=== PATIENT | male | born 1970 | race Hispanic/Latino ===

== ENCOUNTER 2017-04-29 17:37 | Inpatient (IN) | payer OTHER ==
[2017-04-29] MEDS ORDERED: Morphine 4 mg/ml ISec IVP STA ×2 (18:28→22:05)
[2017-04-29] MEDS ORDERED: Sodium Chloride 0.9% 1,000 ML IV STA (18:28)
--- NOTE | 2017-04-29 19:17 | ED PDOC ---
Arrival/HPI - General Chief Complaint: Abdominal Pain Time Seen by Provider: 04/29/17 17:53 Historian: Patient - History of Present Illness Narrative History of Present Illness (Text): The patient is a 47yo male, presents to the emergency department for evaluation of periumbilical abdominal pain, present since 2AM on 04/28, associated with mucus-like bowel movements. Patient states the pain intially started while he was at work and describes it at mild and pressure like. Patient states after he has a bowel movement, he has some relief to his symptoms; also reports similar relief with urination. Patient states the pain is currently intermittent and associated with decreased appetite. He denies any fever, nausea, vomiting, dysuria or hematuria, endoscopy or colonoscopy. He offers no additional medical complaints. Past Medical History - Provider Review Nursing Documentation Reviewed: Yes - Travel History Have you recently traveled outside [place] w/in the past 3 mons?: No - Infectious Disease Hx of Infectious Diseases: None - Psychiatric Hx Substance Use: No - Anesthesia Hx Anesthesia: No Family/Social History - Physician Review Nursing Documentation Reviewed: Yes Family/Social History: CVA/TIA, Diabetes, Hypertension, CAD/OH Smoking Status: Never Smoked Hx Alcohol Use: No Hx Substance Use: No Allergies/Home Meds Allergies/Adverse Reactions: Allergies No Known Allergies Allergy (Verified 04/29/17 17:45) Home Medications: Home Meds Medication Instructions Recorded Confirmed No Known Home Med 04/29/17 04/29/17 Review of Systems - Physician Review All systems were reviewed & negative as marked: Yes - Review of Systems Constitutional: Other (decreased appetite). absent: Fevers Gastrointestinal: Abdominal Pain (periumbilical). absent: Nausea, Vomiting, Hematochezia Genitourinary Male: absent: Dysuria, Frequency, Hematuria Physical Exam Vital Signs Reviewed: Yes Vital Signs Temp Pulse Resp BP Pulse Ox 04/30/17 00:52 112 H 35 H 04/30/17 00:05 101.5 F H 116 H 24 151/79 H 95 04/29/17 22:37 109 H 16 155/81 H 100 04/29/17 20:34 98.4 F 04/29/17 20:33 113 H 18 154/110 H 96 04/29/17 17:47 97.6 F 110 H 18 163/114 H 100 Temperature: Afebrile Blood Pressure: Normal Pulse: Regular Respiratory Rate: Normal Appearance: Positive for: Non-Toxic, Comfortable, Other (obese) Pain Distress: Mild Mental Status: Positive for: Alert and Oriented X 3 - Systems Exam Head: Present: Atraumatic, Normocephalic Pupils: Present: PERRL Extroacular Muscles: Present: EOMI Mouth: Present: Moist Mucous Membranes Respiratory/Chest: Present: Clear to Auscultation Cardiovascular: Present: Regular Rate and Rhythm Abdomen: Present: Tenderness (diffuse abdominal tenderness). No: Distention Upper Extremity: Present: Normal Inspection Lower Extremity: Present: Normal Inspection Neurological: Present: GCS=15, CN II-XII Intact, Speech Normal Lymphatic: No: Cervical Adenopathy, Axillary Adenopathy, Inguinal Adenopathy, Other Psychiatric: Present: Alert, Oriented x 3 Medical Decision Making ED Course and Treatment: Impression: 47yo male comes in for evaluation of periumbilical abdominal pain Plan: -- Labs -- CT AP w/ PO & IV contrast -- Zofran -- Morphine -- Fluids -- Reassess and disposition Progress Notes: On reevaluation, patient continues to pain to the periumbilical area, reports no nausea. On exam, abdomen still soft, slightly distended and rigid with diffuse abdominal tenderness with no guarding, no rebound. Given Morphine 4 mg IV and Zofran 4 mg IV. Labs reviewed : WBC 13, Glucose 165, UA +protein/glucose/ ketones. Patient still pending CT. Tolerating po contrast well. CT results reviewed which show +perforation from acute diverticulitis. residential mortgage underwriter paged STAT, spoke to Dr. Cooley, who came and evaluated the patient. As per Dr. Cooley, Dr. Virgen will take the patient to the OR first thing in the AM, but to admit in the ICU. Call placed to Dr. Gonzales and case discussed, he agrees that the patient should be in ICU. Patient's VSS at this time, he is comfortable and is not requesting for more pain medications. IV cipro and flagyl ordered. Further plan for inpatient admission to ICU discussed with the patient with OR in the AM, he agrees with current plan of care. Patient kept NPO. - Lab Interpretations Lab Results: 04/29/17 18:58 04/29/17 18:58 Lab Results 04/29/17 20:30: Urine Color Yellow, Urine Appearance Clear, Urine pH 6.0, Ur Specific [place] 1.020, Urine Protein 30 H, Urine Glucose (UA) 250 H, Urine Ketones 15 H, Urine Blood Trace-lysed H, Urine Nitrate Negative, Urine Bilirubin Negative, Urine Urobilinogen 0.2, Ur Leukocyte Esterase Negative, Urine RBC 2 - 5, Urine WBC 1 - 3, Ur Epithelial Cells 3 - 4, Urine Bacteria Many , Urine Other Mucus 04/29/17 18:58: Sodium 140, Potassium 4.0, Chloride 101, Carbon Dioxide 29, Anion Gap 14, BUN 20, Creatinine 0.9, Est GFR ( Amer) > 60, Est GFR (Non- Af Amer) > 60, Random Glucose 165 H, Calcium 9.0, Total Bilirubin 1.0, AST 30, ALT 48, Alkaline Phosphatase 80, Total Protein 8.3, Albumin 4.3, Globulin 4.0, Albumin/Globulin Ratio 1.1, Lipase 43 04/29/17 18:58: PT 11.1, INR 1.03, APTT 26.6 04/29/17 18:58: WBC 13.6 H, RBC 5.10, Hgb 15.8, Hct 43.9, MCV 86.1, MCH 31.0, MCHC 36.0, RDW 12.9, Plt Count 200, MPV 9.8, Gran % 86.0 H, Lymph % (Auto) 8.2 L , [place] % (Auto) 5.5, Eos % (Auto) 0.2 L, Baso % (Auto) 0.1, Gran # 11.66 H, Lymph # 1.1 L, [place] # 0.7 H, Eos # 0.0, Baso # 0.02 - RAD Interpretation Radiology Orders: 04/29/17 18:28 ABD PELVIS PO & IV CONTRAST [CT] Stat - Medication Orders Current Medication Orders: Heparin Sodium (Porcine) (Heparin) 5,000 units SC Q12 FRANSICO PRN Reason: Protocol Hydromorphone HCl (Dilaudid) 1 mg IVP Q4H PRN PRN Reason: Pain, severe (8-10) Metronidazole (Flagyl) 500 mg in 100 mls @ 100 mls/hr IVPB Q8 FRANSICO PRN Reason: Protocol Last Admin: 04/30/17 05:11 Dose: 100 mls/hr eMAR Start Stop Document 04/30/17 05:11 AMA (Rec: 04/30/17 05:12 AMA [id number]) Intravenous Solution Start Date 04/30/17 Start Time 05:30 End Date 04/30/17 End time 06:30 Total Infusion Time 60 Lactated Ringer's (Lactated Ringer's) 1,000 mls @ 150 mls/hr IV .Q6H40M FRANSICO Last Admin: 04/30/17 12:33 Dose: 150 mls/hr eMAR Start Stop Document 04/30/17 12:33 AE (Rec: 04/30/17 12:34 AE [facility] Intravenous Solution Start Date 04/30/17 Start Time 12:33 End Date 04/30/17 End time 14:23 Total Infusion Time 110 Ciprofloxacin (Cipro 400mg/200ml Dsw) 400 mg in 200 mls @ 200 mls/hr IVPB 0800, 2000 FRANSICO Acetaminophen (Ofirmev) 1,000 mg in 100 mls @ 400 mls/hr IVPB Q6H PRN PRN Reason: Pain, moderate (4-7) Stop: 05/02/17 13:21 Last Admin: 04/30/17 13:45 Dose: 400 mls/hr eMAR Start Stop Document 04/30/17 13:45 AE (Rec: 04/30/17 13:46 AE [facility] Intravenous Solution Start Date 04/30/17 Start Time 13:46 End Date 04/30/17 End time 14:04 Total Infusion Time 18 MAR Pain Assessment Document 04/30/17 13:45 AE (Rec: 04/30/17 13:46 AE [facility] Pain Reassessment Is this a pain reassessment? Yes Sleep Is patient sleeping during reassessment? No Presence of Pain Presence of Pain Yes Pain Scale Used Pain Scale Used Numeric Location Pain Location Body Site Abdomen Description Description Intermittent Intensity of Pain at present 5 Pain Behavior Guarding Aggravating Factors None Alleviating Factors/Management Medication Techniques Alleviating Factors Medication Ondansetron HCl (Zofran Inj) 4 mg IVP Q6H PRN PRN Reason: Nausea/Vomiting Ondansetron HCl (Zofran Inj) 4 mg IVP ONCE PRN PRN Reason: Nausea/Vomiting Pantoprazole Sodium (Protonix Inj) 40 mg IVP DAILY [facility] Last Admin: 04/30/17 12:34 Dose: 40 mg IVP Administration Document 04/30/17 12:34 AE (Rec: 04/30/17 12:34 AE [facility] Charges for Administration # of IVP Administrations 1 Discontinued Medications Bacitracin (Bacitracin) Confirm Administered Dose 50,000 unit .ROUTE .STK-MED ONE Stop: 04/30/17 07:39 Clindamycin Phosphate (Cleocin) Confirm Administered Dose 1,200 mg .ROUTE .STK- MED ONE Stop: 04/30/17 07:39 Ephedrine (Ephedrine) Confirm Administered Dose 50 mg .ROUTE .STK-MED ONE Stop: 04/30/17 08:46 Fentanyl (Fentanyl) Confirm Administered Dose 100 mcg .ROUTE .STK-MED ONE Stop: 04/30/17 07:58 Fentanyl (Fentanyl) Confirm Administered Dose 100 mcg .ROUTE .STK-MED ONE Stop: 04/30/17 10:25 Glycopyrrolate (Robinul) Confirm Administered Dose 0.2 mg .ROUTE .STK-MED ONE Stop: 04/30/17 10:20 Glycopyrrolate (Robinul) Confirm Administered Dose 0.4 mg .ROUTE .STK-MED ONE Stop: 04/30/17 10:20 Hydromorphone HCl (Dilaudid) 0.5 mg IVP Q4H PRN PRN Reason: Pain, moderate (4-7) Last Admin: 04/30/17 05:10 Dose: 0.5 mg MAR Pain Assessment Document 04/30/17 05:10 AMA (Rec: 04/30/17 05:[address]) Pain Reassessment Is this a pain reassessment? No Sleep Is patient sleeping during reassessment? No Presence of Pain Presence of Pain Yes Pain Scale Used Pain Scale Used Numeric Location Pain Location Body [employer] Coordinator Description Description Constant IVP Administration Document 04/30/17 05:10 AMA (Rec: 04/30/17 05:[address]) Charges for Administration # of IVP Administrations 1 Hydromorphone HCl (Dilaudid) 0.5 mg IVP Q15M PRN PRN Reason: Pain, moderate (4-7) Stop: 04/30/17 09:48 Hydromorphone HCl (Dilaudid) 1 mg IVP Q4H PRN PRN Reason: Pain, moderate (4-7) Last Admin: 04/30/17 12:05 Dose: 1 mg [facility] Pain Assessment Document 04/30/17 12:05 BREONNAShayy (Rec: 04/30/17 12:25 [id number] Pain Reassessment Is this a pain reassessment? Yes Sleep Is patient sleeping during reassessment? No Presence of Pain Presence of Pain Yes Pain Scale Used Pain Scale Used Numeric Location Pain Location Body Site Abdomen Description Description Acute Intensity of Pain at present 8 Acceptable Level of Pain 2 Site Observation S/P MONTES'S PROCEDURE Pain Behavior Moaning Facial Grimacing Aggravating Factors None Alleviating Factors/Management Medication Techniques Relaxation Techniques Alleviating Factors Distraction Effects of Pain DECREASE ADL Effectiveness of Techniques comfort Pain not relieved and LIP/MD was Yes notified IVP Administration Document 04/30/17 12:05 ARELY (Rec: 04/30/17 12:25 [id number] Charges for Administration # of IVP Administrations 1 Re-Assess: [facility] Pain Assessment Document 04/30/17 13:05 AE (Rec: 04/30/17 13:22 AE [id number]) Pain Reassessment Is this a pain reassessment? Yes Sleep Is patient sleeping during reassessment? No Presence of Pain Presence of Pain Yes Pain Scale Used Pain Scale Used Numeric Location Pain Location Body Site Abdomen Description Description Intermittent Alleviating Factors/Management Medication Techniques Alleviating Factors Medication Hydromorphone HCl (Dilaudid) Confirm Administered Dose 0.5 mg .ROUTE .STK-MED ONE Stop: 04/30/17 11:51 Hydromorphone HCl (Dilaudid) Confirm Administered Dose 0.5 mg .ROUTE .STK-MED ONE Stop: 04/30/17 12:05 Hydromorphone HCl (Dilaudid) 1 mg IVP .STK-MED ONE Stop: 04/30/17 12:06 Last Admin: 04/30/17 12:05 Dose: 1 mg Sodium Chloride (Sodium Chloride 0.9%) 1,000 mls @ 1,000 mls/hr IV .Q1H STA Stop: 04/29/17 19:27 Last Admin: 04/29/17 19:00 Dose: 1,000 mls/hr eMAR Start Stop Document 04/29/17 19:00 HI (Rec: 04/29/17 19:00 HI [id number]) Intravenous Solution Start Date 04/29/17 Start Time 19:00 Ampicillin Sodium/Sulbactam (Sodium 3 gm/ Sodium Chloride) 100 mls @ 100 mls/ hr IVPB STAT STA PRN Reason: Protocol Stop: 04/29/17 23:59 Last Admin: 04/29/17 23:44 Dose: 100 mls/hr eMAR Start Stop Document 04/29/17 23:44 ELLA (Rec: 04/29/17 23:44 ELLA [id number]) Intravenous Solution Start Date 04/29/17 Start Time 23:10 End Date 04/29/17 End time 23:44 Total Infusion Time 34 Ciprofloxacin (Cipro 400mg/200ml Dsw) 400 mg in 200 mls @ 133.3 mls/hr IVPB Q12 FRANSICO PRN Reason: Protocol Stop: 04/30/17 01:01 Last Admin: 04/30/17 01:18 Dose: 133.3 mls/hr eMAR Start Stop Document 04/30/17 01:18 AMA (Rec: 04/30/17 01:18 AMA [id number]) Intravenous Solution Start Date 04/30/17 Start Time 01:18 End Date 04/30/17 End time 02:55 Total Infusion Time 97 Ciprofloxacin (Cipro 400mg/200ml Dsw) 400 mg in 200 mls @ 133.3 mls/hr IVPB Q12 FRANSICO PRN Reason: Protocol Stop: 04/30/17 11:31 Last Admin: 04/30/17 12:33 Dose: 133.3 mls/hr eMAR Start Stop Document 04/30/17 12:33 AE (Rec: 04/30/17 12:33 AE [facility] Intravenous Solution Start Date 04/30/17 Start Time 12:33 End Date 04/30/17 End time 14:00 Total Infusion Time 87 Lactated Ringer's (Lactated Ringer's) 1,000 mls @ 75 mls/hr IV .[id number] FRANSICO Stop: 04/30/17 10:01 Last Admin: 04/30/17 13:47 Dose: Not Given Non-Admin Reason: Patient in OR/Vascular Ciprofloxacin (Cipro 400mg/200ml Dsw) Confirm Administered Dose 400 mg in 200 mls @ ud IVPB .STK-MED ONE Stop: 04/30/17 08:04 Last Admin: 04/30/17 08:10 Dose: 200 mls Iohexol (Omnipaque 240 (50 Ml)) Confirm Administered Dose 50 ml .ROUTE .STK-MED ONE Stop: 04/29/17 19:27 Iohexol (Omnipaque 350 100 Ml) Confirm Administered Dose 350 mg .ROUTE .STK-MED ONE Stop: 04/29/17 21:38 Lidocaine (Lidocaine) Confirm Administered Dose 100 mg .ROUTE .STK-MED ONE Stop: 04/30/17 07:58 Midazolam HCl (Versed Inj) Confirm Administered Dose 2 mg .ROUTE .STK-MED ONE Stop: 04/30/17 07:58 Morphine Sulfate (Morphine) 4 mg IVP STAT STA Stop: 04/29/17 18:29 Last Admin: 04/29/17 19:00 Dose: 4 mg MAR Pain Assessment Document 04/29/17 19:00 HI (Rec: 04/29/17 19:01 [id number]) Pain Reassessment Is this a pain reassessment? No Sleep Is patient sleeping during reassessment? No Presence of Pain Presence of Pain Yes Location Upper or Lower Lower Pain Location Body Site Abdomen IVP Administration Document 04/29/17 19:00 HI (Rec: 04/29/17 19:01 [id number]) Charges for Administration # of IVP Administrations 1 Re-Assess: MAR Pain Assessment Document 04/29/17 20:00 HI (Rec: 04/29/17 22:24 [id number]) Pain Reassessment Is this a pain reassessment? Yes Sleep Is patient sleeping during reassessment? No Presence of Pain Presence of Pain Yes Pain Scale Used Pain Scale Used Numeric Description Intensity of Pain at present 3 Morphine Sulfate (Morphine) 4 mg IVP STAT STA Stop: 04/29/17 22:06 Last Admin: 04/29/17 22:36 Dose: 4 mg MAR Pain Assessment Document 04/29/17 22:36 HI (Rec: 04/29/17 22:36 [id number]) Pain Reassessment Is this a pain reassessment? Yes Sleep Is patient sleeping during reassessment? No Presence of Pain Presence of Pain Yes Pain Scale Used Pain Scale Used Numeric Location Upper or Lower Lower Pain Location Body Site Abdomen Description Description Sharp Intensity of Pain at present 6 Alleviating Factors/Management Medication Techniques Alleviating Factors Medication IVP Administration Document 04/29/17 22:36 HI (Rec: 04/29/17 22:36 HI [id number]) Charges for Administration # of IVP Administrations 1 Neostigmine Methylsulfate (Neostigmine Methylsulfate) Confirm Administered Dose 6 mg IV .STK-MED ONE Stop: 04/30/17 10:18 Ondansetron HCl (Zofran Inj) 4 mg IVP STAT STA Stop: 04/29/17 18:29 Last Admin: 04/29/17 19:00 Dose: 4 mg IVP Administration Document 04/29/17 19:00 HI (Rec: 04/29/17 19:00 HI [id number]) Charges for Administration # of IVP Administrations 1 Ondansetron HCl (Zofran Inj) 4 mg IVP STAT STA Stop: 04/29/17 22:06 Last Admin: 04/29/17 22:36 Dose: 4 mg IVP Administration Document 04/29/17 22:36 HI (Rec: 04/29/17 22:36 [id number]) Charges for Administration # of IVP Administrations 1 Ondansetron HCl (Zofran Inj) Confirm Administered Dose 4 mg .ROUTE .STK-MED ONE Stop: 04/30/17 10:18 Oxychlorosene Sodium (Clorpactin Wcs-90) Confirm Administered Dose 14 gm TOP .STK-MED ONE Stop: 04/30/17 07:40 Oxychlorosene Sodium (Clorpactin Wcs-90) 2 gm TOP .STK-MED ONE Stop: 04/30/17 08:31 Last Admin: 04/30/17 08:30 Dose: 2 gm Phenylephrine HCl (Phenylephrine Inj) Confirm Administered Dose 10 mg .ROUTE .STK-MED ONE Stop: 04/30/17 08:47 Propofol (Diprivan) Confirm Administered Dose 400 mg .ROUTE .STK-MED ONE Stop: 04/30/17 07:57 Rocuronium [place] (Zemuron) Confirm Administered Dose 50 mg .ROUTE .STK-MED ONE Stop: 09/25/17 07:58 Soap/Cleanser (Mastisol Adhesive) Confirm Administered Dose 0.666 ml TOP .STK- MED ONE Stop: 04/30/17 10:30 - PA / FIELD GAUGER / Resident Statement MD/DO has reviewed & agrees with the documentation as recorded. - Scribe Statement The provider has reviewed the documentation as recorded by the Scribe Shobha Rob Provider Scribe Attestation: All medical record entries made by the Scribe were at my direction and personally dictated by me. I have reviewed the chart and agree that the record accurately reflects my personal performance of the history, physical exam, medical decision making, and the department course for this patient. I have also personally directed, reviewed, and agree with the discharge instructions and disposition. Disposition/Present on Arrival - Present on Arrival Any Indicators Present on Arrival: No History of DVT/PE: No History of Uncontrolled Diabetes: No Urinary Catheter: No History of Decub. Ulcer: No History Surgical Site Infection Following: None - Disposition Have Diagnosis and Disposition been Completed?: Yes Diagnosis: Diverticulitis of colon with perforation Disposition: HOSPITALIZED Disposition Time: 23:15 Patient Plan: ICU Patient Problems: Current Active Problems Problem Status Onset Diverticulitis of colon with perforation Acute Condition: STABLE
[2017-04-29 19:26] LABS: ALB/GLOB RATIO 1.1 (1.1-1.8); ALKALINE PHOSPHATASE 80 U/L (38-126); ALT/SGPT 48 U/L (7-56); AST/SGOT 30 U/L (17-59); BLOOD UREA NITROGEN 20 mg/dL (7-21); CARBON DIOXIDE 29 mmol/L (21-33); CHLORIDE 101 mmol/L (98-107); GFR AFRICAN-AMERICAN > 60; GLUCOSE,RANDOM 165 mg/dL (70-110); LIPASE 43 U/L (23-300); SODIUM 140 mmol/L (132-148); TOTAL PROTEIN 8.3 g/dL (5.8-8.3)
[2017-04-29] MEDS ORDERED: Iohexol 240 (50 ml) ONE (19:26)
[2017-04-29 19:28] LABS: BASO # 0.02 K/mm3 (0.0-2.0); BASO % 0.1 % (0.0-3.0); EOS % 0.2 % (1.5-5.0); GRAN # 11.66 (1.4-6.5); HEMATOCRIT 43.9 % (42.0-52.0); LYMPH # 1.1 (1.2-3.4); LYMPH % 8.2 % (22.0-35.0); MEAN CELL VOLUME 86.1 fl (80.0-105.0); MEAN PLATELET VOLUME 9.8 fl (7.0-11.0); MONO # 0.7 (0.1-0.6); MONO % 5.5 % (1.0-6.0); RED CELL DISTRIBUTION WIDTH 12.9 % (11.5-14.5); WHITE BLOOD COUNT 13.6 10^3/ul (4.5-11.0)
[2017-04-29 19:39] LABS: INR 1.03 (0.93-1.08); PARTIAL THROMBOPLASTIN TIME 26.6 Seconds (23.7-30.8)
[2017-04-29 21:03] LABS: URINE BILIRUBIN NEGATIVE (NEGATIVE); URINE BLOOD TRACE-LYSED (NEGATIVE); URINE GLUCOSE (UA) 250 mg/dL (NEGATIVE); URINE KETONE 15 mg/dL (NEGATIVE); URINE LEUKOCYTE ESTERASE NEGATIVE Leu/uL (NEGATIVE); URINE PROTEIN 30 mg/dL (<30 mg/dL); URINE UROBILINOGEN 0.2 E.U./dL (<1 E.U./dL)
[2017-04-29 21:10] LABS: URINE APPEARANCE CLEAR (CLEAR); URINE COLOR YELLOW (YELLOW)
[2017-04-29 21:27] LABS: URINE BACTERIA MANY (NEG)
[2017-04-29] MEDS ORDERED: Iohexol 350 MG/100 ML VIAL ONE (21:37)
--- NOTE | 2017-04-29 22:48 | CT ---
EXAM: CT Abdomen and Pelvis With Intravenous Contrast CLINICAL HISTORY: 47 years old, male; Pain; Abdominal pain; Periumbilical; Patient HX: Abd pain, mucus tool TECHNIQUE: Axial computed tomography images of the abdomen and pelvis with intravenous contrast. All CT scans at this facility use one or more dose reduction techniques, viz.: automated exposure control; ma/kV adjustment per patient size (including targeted exams where dose is matched to indication; i.e. head); or iterative reconstruction technique. Coronal and sagittal reformatted images were created and reviewed. CONTRAST: 97 mL of OMNIPAQUE 350 administered intravenously. COMPARISON: No relevant prior studies available. FINDINGS: Atelectasis/scarring at the lung bases. 1.5 mm calcified nodular pleural based focus in the right middle lobe. Fatty infiltration of the liver. The spleen, pancreas and adrenal glands demonstrate no acute abnormalities. The kidneys are symmetric with no evidence of hydronephrosis. The aorta is unremarkable. Colonic diverticula. Segment of sigmoid colon demonstrates significant bowel wall thickening. Adjacent surrounding the fluid/inflammatory stranding in the mesentery. Some adjacent small bowel loops demonstrate bowel wall thickening, likely secondary inflammation. Free air is noted throughout the peritoneum. Degenerative changes. IMPRESSION: Appearance most consistent with perforated acute diverticulitis. Please see additional details/findings as above.
[2017-04-29] MEDS: Ampicillin/Sulbactam 3 GM in Sodium Chloride 0.9% 100 ML IVPB STA ×2 (23:10→23:44)
--- NOTE | 2017-04-29 23:20 | CP.PCM.HP ---
History of Present Illness - History of Present Illness History of Present Illness: General Surgery - Dr. Virgen cc: abdominal pain 47 M with no PMH presents to [facility] with complain of abdominal pain. Patient states that pain began Sunday while he was at work. He felt like he had to have a BM and when he went he noticed the pain worsened. Patient decided to wait it out to see if pain resolved but instead had gotten progressively worse. Patient never had this pain before. He states this is the worst pain he's experienced in his life. He describes the pain as constant and stabbing located in the periumbilical region and LLQ. He had multiple bouts of diarrhea and mucous consistency BMs. Palpation, BMs and certain movements exacerbates the pain while nothing alleviates it. Admits to anorexia, subjective fever/chills, nausea. Denies cp, palpitations, vomiting, hematochezia, hematemesis, incontinence. PMH: Denies Meds: Denies Allergy: NKDA PSH: Denies Hosp: Denies FH: noncontributory Social: Denies tobacco, EtOH, and illicit drug use Present on Admission - Present on Admission Any Indicators Present on Admission: No History of DVT/PE: No History of Uncontrolled Diabetes: No Urinary Catheter: No Decubitus Ulcer Present: No Review of Systems - Review of Systems All systems: reviewed and no additional remarkable complaints except (anorexia, subjective fever/chills, nausea. diarrhea, abdominal pain) Past Patient History - Infectious Disease Hx of Infectious Diseases: None - Past Social History Smoking Status: Never Smoked - PSYCHIATRIC Hx Substance Use: No - SURGICAL HISTORY Hx Surgeries: No - ANESTHESIA Hx Anesthesia: No Meds Allergies/Adverse Reactions: Allergies Allergy/AdvReac Type Severity Reaction Status Date / Time No Known Allergies Allergy Verified 04/29/17 17:45 Physical Exam - Constitutional Appears: No Acute Distress - Head Exam Head Exam: ATRAUMATIC, NORMOCEPHALIC - Eye Exam Eye Exam: Normal appearance - ENT Exam ENT Exam: Mucous Membranes Moist - Neck Exam Neck exam: Positive for: Full Rom - Respiratory Exam Respiratory Exam: NORMAL BREATHING PATTERN - Cardiovascular Exam Cardiovascular Exam: Tachycardia - GI/Abdominal Exam GI & Abdominal Exam: Distended, Firm, Guarding, Tenderness (periumbilical, LLQ) . absent: Rebound - Extremities Exam Extremities exam: Positive for: normal capillary refill, pedal pulses present. Negative for: calf tenderness - Back Exam Back exam: absent: CVA tenderness (L), CVA tenderness (R) - Neurological Exam Neurological exam: Alert, CN II-XII Intact, Oriented x3 - Psychiatric Exam Psychiatric exam: Normal Affect, Normal Mood - Skin Skin Exam: Dry, Intact, Normal Color, Warm Results - Vital Signs Recent Vital Signs: Last Vital Signs Temp 98.4 F 04/29/17 20:34 Pulse 109 H 04/29/17 22:37 Resp 16 04/29/17 22:37 BP 155/81 H 04/29/17 22:37 Pulse Ox 100 04/29/17 22:37 - Labs Result Diagrams: 04/29/17 18:58 04/29/17 18:58 Labs: Laboratory Results - last 24 hr 04/29/17 04/29/17 04/29/17 18:58 18:58 18:58 WBC 13.6 H RBC 5.10 Hgb 15.8 Hct 43.9 MCV 86.1 MCH 31.0 MCHC 36.0 RDW 12.9 Plt Count 200 MPV 9.8 Gran % 86.0 H Lymph % (Auto) 8.2 L [place] % (Auto) 5.5 Eos % (Auto) 0.2 L Baso % (Auto) 0.1 Gran # 11.66 H Lymph # 1.1 L [place] # 0.7 H Eos # 0.0 Baso # 0.02 PT 11.1 INR 1.03 APTT 26.6 Sodium 140 Potassium 4.0 Chloride 101 Carbon Dioxide 29 Anion Gap 14 BUN 20 Creatinine 0.9 Est GFR ( Amer) > 60 Est GFR (Non-Af Amer) > 60 Random Glucose 165 H Calcium 9.0 Total Bilirubin 1.0 AST 30 ALT 48 Alkaline Phosphatase 80 Total Protein 8.3 Albumin 4.3 Globulin 4.0 Albumin/Globulin Ratio 1.1 Lipase 43 Urine Color Urine Appearance Urine pH Ur Specific [place] Urine Protein Urine Glucose (UA) Urine Ketones Urine Blood Urine Nitrate Urine Bilirubin Urine Urobilinogen Ur Leukocyte Esterase Urine RBC Urine WBC Ur Epithelial Cells Urine Bacteria Urine Other 04/29/17 20:30 WBC RBC Hgb Hct MCV MCH MCHC RDW Plt Count MPV Gran % Lymph % (Auto) [place] % (Auto) Eos % (Auto) Baso % (Auto) Gran # Lymph # [place] # Eos # Baso # PT INR APTT Sodium Potassium Chloride Carbon Dioxide Anion Gap BUN Creatinine Est GFR ( Amer) Est GFR (Non-Af Amer) Random Glucose Calcium Total Bilirubin AST ALT Alkaline Phosphatase Total Protein Albumin Globulin Albumin/Globulin Ratio Lipase Urine Color Yellow Urine Appearance Clear Urine pH 6.0 Ur Specific [place] 1.020 Urine Protein 30 H Urine Glucose (UA) 250 H Urine Ketones 15 H Urine Blood Trace-lysed H Urine Nitrate Negative Urine Bilirubin Negative Urine Urobilinogen 0.2 Ur Leukocyte Esterase Negative Urine RBC 2 - 5 Urine WBC 1 - 3 Ur Epithelial Cells 3 - 4 Urine Bacteria Many Urine Other Mucus Assessment & Plan - Assessment and Plan (Free Text) Plan: 47 M with acute perforated diverticulitis with free air in abdomen -CT revealed free air and perforated diverticulitis in sigmoid colon -Plan for OR at 730 AM -NPO -Type and Cross -IV fluids -IV abx -Pain control -DW Dr. Param Cooley PGY1
[2017-04-29] MEDS ORDERED: HYDROmorphone 0.5 mg/0.5 ml ISec IVP PRN (23:21)
[2017-04-29] MEDS ORDERED: Ciprofloxacin 400mg/200ml D5W 400 MG/200 ML BAG IVPB SCH (23:30)
[2017-04-29] MEDS: Lactated Ringer's 1,000 ML IV SCH (23:43)
[2017-04-29] MEDS: metroNIDAZOLE IV 500 mg/100 ml 500 MG/100 ML BAG IVPB SCH (23:55)
[2017-04-30 00:06] LABS: INR 1.06 (0.93-1.08); PARTIAL THROMBOPLASTIN TIME 27.8 Seconds (23.7-30.8)
[2017-04-30 01:23] VITALS: BMI 40.1
[2017-04-30] MEDS: Lactated Ringer's 1,000 ML IV SCH ×3 (01:44→12:33)
--- NOTE | 2017-04-30 01:48 | CP.PCM.CON ---
<Willie Ogden - Last Filed: 04/30/17 03:27> History of Present Illness - History of Present Illness History of Present Illness: HPI: Patient is a 47 year old male with no previous medical history who presents to the [facility] ED 04/29/17 with complaints of abdominal pain which started around 4 a.m. as per patient. He states the pain was diffusely throughout the abdomen but more so in the lower left quadrant. He states that when the pain started he would have to both urinate and make a bowel movement which relieved the pain; admitted to [facility] from time to time. Patient denies any associated nausea, vomiting, diarrhea. Described the bowel movements as soft stating they were not solid nor loose. He also denies the presence of blood or discoloration to stool. Patient states the pain associated with bowel movements continued every hour until 5 p.m. on 04/29/17, with the last episode of bowel movement consisting mainly of stringy mucous and association of severe 10/10 pain. He states that after this bowel movement he could hardly move without feeling pain; which prompted him to go to the ED. He admits to lack of appetite, however patient did continue to eat foods which consisted of bread, chicken, and broccoli. Admits to feeling febrile, denies chills, nausea, vomiting, dysuria, dizziness, headache, weakness, chest pain, shortness of breath. Neurological Patient is alert awake and oriented x 3 with a GSC score of 15. Cranial nerves II-XII intact. Currently administered Dilaudid 0.5 mg q4 PRN for pain control. Cardiolovascular S1 and S2 present, RRR, no murmurs or gallops appreciated. HR last measured at 120. BP last measured at 160/90. Normal color skin, warm. Temperature last measured at 100.3 F. Respiratory CTA B/L, no crackles, wheezing, or rhonchi appreciated. Pulse Ox last measured at 95% on room air. Respiratory rate last measured at 21. Renal Patient currently on LR 1000 ml IV 150 mls/hr. Sodium 140, Potassium 4.0, Chloride 101, Bicarb 29, BUN/Cr 20/0.9. Skin with normal turgor. Gastrointestinal Abdomen is large round and distended with absent bowel sounds, tender upon palpation B/L LQ. Patient admits to over 20 episodes of bowel movements since start of abdominal pain. Albumin 4.3, AST 30, ALT 48, Lipase 43. Abdominal/ Pelvic CT reveals findings consistent with perforated acute diverticulitis. Endocrine Glucose 165, Calcium 9.0, Sodium 140, Potassium 4.0 Hematology WBC 13.6, Platelets 200, H&H 15.8 & 43.9, PT 11.4, INR1.06, PTT 27.8 Review of Systems - Constitutional Constitutional: Fever. absent: Chills, Increased Appetite - EENT Eyes: absent: Blurred Vision, Change in Vision Ears: absent: Decreased Hearing, Ear Discharge, Dizziness - Cardiovascular Cardiovascular: absent: Chest Pain, Dyspnea - Respiratory Respiratory: absent: Cough, Dyspnea, Wheezing - Gastrointestinal Gastrointestinal: Abdominal Pain, Change in Bowel Habits (several episodes of soft stools and tenesmus). absent: Constipation, Diarrhea, Melena, Nausea, Vomiting - Genitourinary Genitourinary: absent: Change in Urinary Stream, Difficulty Urinating, Dysuria, Flank Pain, Hematuria - Neurological Neurological: absent: Abnormal Movements, Dizziness, Numbness Past Patient History - Infectious Disease Hx of Infectious Diseases: None - Past Social History Smoking Status: Never Smoked - CARDIAC Hx Cardiac Disorders: No - PULMONARY Hx Respiratory Disorders: No - NEUROLOGICAL Hx Neurological Disorder: No - HEENT Hx HEENT Problems: Yes Other/Comment: glasses - RENAL Hx Chronic Kidney Disease: No - ENDOCRINE/METABOLIC Hx Endocrine Disorders: No - HEMATOLOGICAL/ONCOLOGICAL Hx Blood Disorders: No - INTEGUMENTARY Hx Dermatological Problems: No - MUSCULOSKELETAL/RHEUMATOLOGICAL Hx Musculoskeletal Disorders: Yes Hx Falls: No Other/Comment: muscle tear 2 weeks prior - GASTROINTESTINAL Hx Gastrointestinal Disorders: No - GENITOURINARY/GYNECOLOGICAL Hx Genitourinary Disorders: No - PSYCHIATRIC Hx Psychophysiologic Disorder: No Hx Substance Use: No - SURGICAL HISTORY Hx Surgeries: No - ANESTHESIA Hx Anesthesia: No Meds Allergies/Adverse Reactions: Allergies Allergy/AdvReac Type Severity Reaction Status Date / Time No Known Allergies Allergy Verified 04/29/17 17:45 - Medications Medications: Current Medications Hydromorphone HCl (Dilaudid) 0.5 mg IVP Q4H PRN PRN Reason: Pain, moderate (4-7) Metronidazole (Flagyl) 500 mg in 100 mls @ 100 mls/hr IVPB Q8 FRANSICO PRN Reason: Protocol Last Admin: 04/29/17 23:55 Dose: 100 mls/hr Lactated Ringer's (Lactated Ringer's) 1,000 mls @ 150 mls/hr IV .[id number] [facility] Last Admin: 04/29/17 23:43 Dose: 150 mls/hr Ondansetron HCl (Zofran Inj) 4 mg IVP Q6H PRN PRN Reason: Nausea/Vomiting Pantoprazole Sodium (Protonix Inj) 40 mg IVP DAILY [facility] Physical Exam - Constitutional Appears: In Acute Distress - Head Exam Head Exam: ATRAUMATIC, NORMAL INSPECTION, NORMOCEPHALIC - Eye Exam Eye Exam: EOMI - ENT Exam ENT Exam: Mucous Membranes Moist, Normal Exam - Neck Exam Neck exam: Positive for: Normal Inspection - Respiratory Exam Respiratory Exam: Clear to Auscultation Bilateral, NORMAL BREATHING PATTERN - Cardiovascular Exam Cardiovascular Exam: Tachycardia, REGULAR RHYTHM, RRR, +S1, +S2 - GI/Abdominal Exam GI & Abdominal Exam: Diminished Bowel Sounds, Distended, Tenderness (diffuse). absent: Guarding, Normal Bowel Sounds, Rebound, Rigid, Soft - Neurological Exam Neurological exam: Alert, CN II-XII Intact, Oriented x3 - Skin Skin Exam: Normal Color, Warm Results - Vital Signs Recent Vital Signs: Last Vital Signs Temp 100.3 F H 04/30/17 01:00 Pulse 110 H 04/30/17 01:00 Resp 29 H 04/30/17 01:00 BP 160/90 H 04/30/17 01:00 Pulse Ox 94 L 04/30/17 01:00 - Labs Result Diagrams: 04/29/17 18:58 04/29/17 18:58 Labs: Laboratory Results - last 24 hr 04/29/17 04/29/17 04/30/17 23:45 23:45 00:30 PT 11.4 INR 1.06 APTT 27.8 Blood Type A POSITIVE Blood Type Confirm A POSITIVE Antibody Screen Negative Crossmatch See Detail BBK History Checked No verified bt Assessment & Plan - Assessment and Plan (Free Text) Plan: Assessment 47 year old male presenting with perforated diverticula Plan - Surgery in a.m. - Flagyl 500 mg q8 - Dilaudid 0.5 mg IVP q4 - Zofran 4 mg IVP q6 - Protonix 40 mg IVP daily <Kaleb Gonzales MD - Last Filed: 04/30/17 09:03> Meds - Medications Medications: Current Medications Hydromorphone HCl (Dilaudid) 0.5 mg IVP Q4H PRN PRN Reason: Pain, moderate (4-7) Last Admin: 04/30/17 05:10 Dose: 0.5 mg Hydromorphone HCl (Dilaudid) 0.5 mg IVP Q15M PRN PRN Reason: Pain, moderate (4-7) Stop: 04/30/17 09:48 Metronidazole (Flagyl) 500 mg in 100 mls @ 100 mls/hr IVPB Q8 FRANSICO PRN Reason: Protocol Last Admin: 04/30/17 05:11 Dose: 100 mls/hr Lactated Ringer's (Lactated Ringer's) 1,000 mls @ 150 mls/hr IV .Q6H40M [facility] Last Admin: 04/30/17 06:13 Dose: 150 mls/hr Ciprofloxacin (Cipro 400mg/200ml Dsw) 400 mg in 200 mls @ 133.3 mls/hr IVPB Q12 FRANSICO PRN Reason: Protocol Stop: 04/30/17 11:31 Lactated Ringer's (Lactated Ringer's) 1,000 mls @ 75 mls/hr IV .[id number] [facility] Stop: 04/30/17 10:01 Ondansetron HCl (Zofran Inj) 4 mg IVP Q6H PRN PRN Reason: Nausea/Vomiting Ondansetron HCl (Zofran Inj) 4 mg IVP ONCE PRN PRN Reason: Nausea/Vomiting Pantoprazole Sodium (Protonix Inj) 40 mg IVP DAILY [facility] Results - Vital Signs Recent Vital Signs: Last Vital Signs Temp 99 F 04/30/17 06:00 Pulse 101 H 04/30/17 07:40 Resp 31 H 04/30/17 07:40 BP 132/75 04/30/17 07:00 Pulse Ox 96 04/30/17 07:40 - Labs Result Diagrams: 04/30/17 06:40 04/30/17 06:40 Labs: Laboratory Results - last 24 hr 04/29/17 04/29/17 04/30/17 23:45 23:45 00:30 WBC RBC Hgb Hct MCV MCH MCHC RDW Plt Count MPV Gran % Lymph % (Auto) [place] % (Auto) Eos % (Auto) Baso % (Auto) Gran # Lymph # [place] # Eos # Baso # PT 11.4 INR 1.06 APTT 27.8 Sodium Potassium Chloride Carbon Dioxide Anion Gap BUN Creatinine Est GFR ( Amer) Est GFR (Non-Af Amer) Random Glucose Calcium Total Bilirubin AST ALT Alkaline Phosphatase Total Protein Albumin Globulin Albumin/Globulin Ratio Blood Type A POSITIVE Blood Type Confirm A POSITIVE Antibody Screen Negative Crossmatch See Detail BBK History Checked No verified bt 04/30/17 04/30/17 04/30/17 06:40 06:40 06:40 WBC 11.5 H RBC 4.47 Hgb 13.5 L D Hct 38.4 L MCV 85.9 MCH 30.2 MCHC 35.2 RDW 13.0 Plt Count 175 MPV 9.6 Gran % 80.4 H Lymph % (Auto) 12.0 L [place] % (Auto) 7.3 H Eos % (Auto) 0.2 L Baso % (Auto) 0.1 Gran # 9.27 H Lymph # 1.4 [place] # 0.8 H Eos # 0.0 Baso # 0.01 PT 11.4 INR 1.06 APTT 28.2 Sodium 138 Potassium 3.6 Chloride 103 Carbon Dioxide 26 Anion Gap 13 BUN 16 Creatinine 0.8 Est GFR ( Amer) > 60 Est GFR (Non-Af Amer) > 60 Random Glucose 133 H Calcium 8.3 L Total Bilirubin 1.0 AST 22 ALT 37 Alkaline Phosphatase 66 Total Protein 7.0 Albumin 3.7 Globulin 3.3 Albumin/Globulin Ratio 1.1 Blood Type Blood Type Confirm Antibody Screen Crossmatch BBK History Checked Attending/Attestation - Attestation I have personally seen and examined this patient.: Yes I have fully participated in the care of the patient.: Yes I have reviewed all pertinent clinical information: Yes Notes (Text): -I agree with the above ICU consult note completed by the resident physician, with the following additions and/or changes: The patient is a 47 year old man with no past medical history who is being admitted to the ICU with acute perforated diverticulitis. General surgery plans to take the patient to the OR at around 7am in the morning. Overnight, he will be kept on IVF's, empiric IV Cipro/Flagyl and NPO.
[2017-04-30] MEDS: metroNIDAZOLE IV 500 mg/100 ml 500 MG/100 ML BAG IVPB SCH ×2 (05:11→22:00)
[2017-04-30 07:03] LABS: BASO # 0.01 K/mm3 (0.0-2.0); BASO % 0.1 % (0.0-3.0); EOS % 0.2 % (1.5-5.0); GRAN # 9.27 (1.4-6.5); GRAN % 80.4 % (50.0-68.0); HEMATOCRIT 38.4 % (42.0-52.0); LYMPH # 1.4 (1.2-3.4); MEAN CELL VOLUME 85.9 fl (80.0-105.0); MEAN CORPUSCULAR HEMOGLOBIN 30.2 pg (25.0-35.0); MEAN CORPUSCULAR HGB CONC 35.2 g/dl (31.0-37.0); MEAN PLATELET VOLUME 9.6 fl (7.0-11.0); MONO # 0.8 (0.1-0.6); MONO % 7.3 % (1.0-6.0); WHITE BLOOD COUNT 11.5 10^3/ul (4.5-11.0)
[2017-04-30 07:10] LABS: INR 1.06 (0.93-1.08); PARTIAL THROMBOPLASTIN TIME 28.2 Seconds (23.7-30.8)
[2017-04-30 07:26] LABS: ALB/GLOB RATIO 1.1 (1.1-1.8); ALKALINE PHOSPHATASE 66 U/L (38-126); ALT/SGPT 37 U/L (7-56); AST/SGOT 22 U/L (17-59); BLOOD UREA NITROGEN 16 mg/dL (7-21); CALCIUM 8.3 mg/dL (8.4-10.5); CARBON DIOXIDE 26 mmol/L (21-33); CHLORIDE 103 mmol/L (98-107); GFR AFRICAN-AMERICAN > 60; GLUCOSE,RANDOM 133 mg/dL (70-110); POTASSIUM 3.6 mmol/L (3.6-5.0); SODIUM 138 mmol/L (132-148)
[2017-04-30] MEDS ORDERED: Oxychlorosene Topical 2 gm Packet TOP ONE ×2 (07:39→08:30)
--- NOTE | 2017-04-30 07:42 | CP.CCUPN ---
<Usha Nava - Last Filed: 04/30/17 08:39> CCU Subjective - Physician Review Events Since Last Encounter (Free Text): 04/30/17 07:38 No acute events overnight Subjective (Free Text): 04/30/17 07:39 Critical care progress note for Dr. Kasandra Nava, PGY-1 Pt S & E at bedside. Pt reports continued diffuse abdominal pain overnight, mostly aware of it when pt is touched or moves. Denies N/V/F/C, SOB, CP, palpitations. For OR today. Critical Care Time Spent (in minutes): 35 CCU Objective - Vital Signs / Intake & Output Vital Signs (Last 4 hours): Vital Signs Temp Pulse Resp BP Pulse Ox 04/30/17 06:10 92 H 38 H 91 L 04/30/17 06:00 99 F 91 H 12 126/78 95 04/30/17 05:50 88 89 L 04/30/17 05:40 92 H 91 L 04/30/17 05:30 92 H 5 L 90 L 04/30/17 05:20 96 H 27 H 90 L 04/30/17 05:10 96 H 94 L 04/30/17 05:00 97 H 10 L 135/83 94 L 04/30/17 04:50 100 H 21 96 04/30/17 04:40 98 H 33 H 93 L 04/30/17 04:30 117 H 04/30/17 04:20 104 H 20 92 L 04/30/17 04:10 100 H 13 94 L 04/30/17 04:01 97 H 29 H 115/52 L 93 L 04/30/17 04:00 100 H 20 94 L 04/30/17 03:50 94 H 20 91 L 04/30/17 03:40 97 H 32 H 93 L Intake and Output (Last 8hrs): Intake & Output 04/29/17 04/30/17 04/30/17 22:59 06:59 14:59 Intake Total 1450 Output Total 250 Balance 1200 Weight 107.955 kg Intake: IV 1450 Left Antecubital 1450 Oral 0 Output: Urine 250 Urine, Voided 250 Other: # Voids Urine, Voided 1 # Bowel Movements 0 - Physical Exam Head: Positive for: Atraumatic, Normocephalic Pupils: Positive for: PERRL Extroacular Muscles: Positive for: EOMI Conjunctiva: Positive for: Normal Mouth: Positive for: Moist Mucous Membranes Nose (External): Positive for: Atraumatic Neck: Positive for: Normal Range of Motion Respiratory/Chest: Positive for: Clear to Auscultation, Good Air Exchange. Negative for: Respiratory Distress, Accessory Muscle Use Cardiovascular: Positive for: Regular Rate and Rhythm, Normal S1, S2. Negative for: Murmurs Abdomen: Positive for: Tenderness (diffuse abdominal tenderness), Distention. Negative for: Normal Bowel Sounds (hypo), Peritoneal Signs, Rebound, Guarding, Hernias, Scars Upper Extremity: Positive for: Normal Inspection. Negative for: Cyanosis, Edema Lower Extremity: Positive for: Normal Inspection. Negative for: Edema Neurological: Positive for: GCS=15, CN II-XII Intact, Speech Normal Skin: Positive for: Warm, Dry, Normal Color. Negative for: Rashes Lymphatic: Negative for: Cervical Adenopathy, Axillary Adenopathy, Inguinal Adenopathy, Other Psychiatric: Positive for: Alert, Oriented x 3, Normal Insight, Normal Concentration - Medications Active Medications: Active Medications Generic Name Dose Route Start Last Admin Trade Name Freq PRN Reason Stop Dose Admin Hydromorphone HCl 0.5 mg 04/29/17 23:21 04/30/17 05:10 Dilaudid IVP 0.5 mg Q4H PRN Administration Pain, moderate (4-7) Metronidazole 500 mg in 100 mls @ 100 mls/hr 04/29/17 23:30 04/30/17 05:11 Flagyl IVPB 100 mls/hr Q8 FRANSICO Administration Protocol Lactated Ringer's 1,000 mls @ 150 mls/hr 04/29/17 23:27 04/30/17 06:13 Lactated Ringer's IV 150 mls/hr .Q6H40M FRANSICO Administration Ciprofloxacin 400 mg in 200 mls @ 133.3 mls/hr 04/30/17 10:00 Cipro 400mg/200ml Dsw IVPB 04/30/17 11:31 Q12 FRANSICO Protocol Ondansetron HCl 4 mg 04/29/17 23:24 Zofran Inj IVP Q6H PRN Nausea/Vomiting Pantoprazole Sodium 40 mg 04/30/17 10:00 Protonix Inj IVP DAILY FRANSICO - Patient Studies Lab Studies: Lab Studies 04/30/17 04/30/17 04/30/17 Range/Units 06:40 06:40 06:40 WBC 11.5 H (4.5-11.0) 10^3/ul RBC 4.47 (3.5-6.1) 10^6/uL Hgb 13.5 L D (14.0-18.0) g/dL Hct 38.4 L (42.0-52.0) % MCV 85.9 (80.0-105.0) fl MCH 30.2 (25.0-35.0) pg MCHC 35.2 (31.0-37.0) g/dl RDW 13.0 (11.5-14.5) % Plt Count 175 (120.0-450.0) 10^3/uL MPV 9.6 (7.0-11.0) fl Gran % 80.4 H (50.0-68.0) % Lymph % (Auto) 12.0 L (22.0-35.0) % [place] % (Auto) 7.3 H (1.0-6.0) % Eos % (Auto) 0.2 L (1.5-5.0) % Baso % (Auto) 0.1 (0.0-3.0) % Gran # 9.27 H (1.4-6.5) Lymph # 1.4 (1.2-3.4) [place] # 0.8 H (0.1-0.6) Eos # 0.0 (0.0-0.7) Baso # 0.01 (0.0-2.0) K/mm3 PT 11.4 (9.9-11.8) Seconds INR 1.06 (0.93-1.08) APTT 28.2 (23.7-30.8) Seconds Sodium 138 (132-148) mmol/L Potassium 3.6 (3.6-5.0) mmol/L Chloride 103 (98-107) mmol/L Carbon Dioxide 26 (21-33) mmol/L Anion Gap 13 (10-20) BUN 16 (7-21) mg/dL Creatinine 0.8 (0.5-1.4) mg/dL Est GFR ( Amer) > 60 Est GFR (Non-Af Amer) > 60 Random Glucose 133 H (70-110) mg/dL Calcium 8.3 L (8.4-10.5) mg/dL Total Bilirubin 1.0 (0.2-1.3) mg/dL AST 22 (17-59) U/L ALT 37 (7-56) U/L Alkaline Phosphatase 66 (38-126) U/L Total Protein 7.0 (5.8-8.3) g/dL Albumin 3.7 (3.0-4.8) g/dL Globulin 3.3 gm/dL Albumin/Globulin Ratio 1.1 (1.1-1.8) Blood Type Blood Type Confirm Antibody Screen Crossmatch BBK History Checked 04/30/17 04/29/17 04/29/17 Range/Units 00:30 23:45 23:45 WBC (4.5-11.0) 10^3/ul RBC (3.5-6.1) 10^6/uL Hgb (14.0-18.0) g/dL Hct (42.0-52.0) % MCV (80.0-105.0) fl MCH (25.0-35.0) pg MCHC (31.0-37.0) g/dl RDW (11.5-14.5) % Plt Count (120.0-450.0) 10^3/uL MPV (7.0-11.0) fl Gran % (50.0-68.0) % Lymph % (Auto) (22.0-35.0) % [place] % (Auto) (1.0-6.0) % Eos % (Auto) (1.5-5.0) % Baso % (Auto) (0.0-3.0) % Gran # (1.4-6.5) Lymph # (1.2-3.4) [place] # (0.1-0.6) Eos # (0.0-0.7) Baso # (0.0-2.0) K/mm3 PT 11.4 (9.9-11.8) Seconds INR 1.06 (0.93-1.08) APTT 27.8 (23.7-30.8) Seconds Sodium (132-148) mmol/L Potassium (3.6-5.0) mmol/L Chloride (98-107) mmol/L Carbon Dioxide (21-33) mmol/L Anion Gap (10-20) BUN (7-21) mg/dL Creatinine (0.5-1.4) mg/dL Est GFR ( Amer) Est GFR (Non-Af Amer) Random Glucose (70-110) mg/dL Calcium (8.4-10.5) mg/dL Total Bilirubin (0.2-1.3) mg/dL AST (17-59) U/L ALT (7-56) U/L Alkaline Phosphatase (38-126) U/L Total Protein (5.8-8.3) g/dL Albumin (3.0-4.8) g/dL Globulin gm/dL Albumin/Globulin Ratio (1.1-1.8) Blood Type A POSITIVE Blood Type Confirm A POSITIVE Antibody Screen Negative Crossmatch See Detail BBK History Checked No verified bt Laboratory Results - last 24 hr 04/29/17 04/29/17 04/30/17 23:45 23:45 00:30 WBC RBC Hgb Hct MCV MCH MCHC RDW Plt Count MPV Gran % Lymph % (Auto) [place] % (Auto) Eos % (Auto) Baso % (Auto) Gran # Lymph # [place] # Eos # Baso # PT 11.4 INR 1.06 APTT 27.8 Sodium Potassium Chloride Carbon Dioxide Anion Gap BUN Creatinine Est GFR ( Amer) Est GFR (Non-Af Amer) Random Glucose Calcium Total Bilirubin AST ALT Alkaline Phosphatase Total Protein Albumin Globulin Albumin/Globulin Ratio Blood Type A POSITIVE Blood Type Confirm A POSITIVE Antibody Screen Negative Crossmatch See Detail BBK History Checked No verified bt 04/30/17 04/30/17 04/30/17 06:40 06:40 06:40 WBC 11.5 H RBC 4.47 Hgb 13.5 L D Hct 38.4 L MCV 85.9 MCH 30.2 MCHC 35.2 RDW 13.0 Plt Count 175 MPV 9.6 Gran % 80.4 H Lymph % (Auto) 12.0 L [place] % (Auto) 7.3 H Eos % (Auto) 0.2 L Baso % (Auto) 0.1 Gran # 9.27 H Lymph # 1.4 [place] # 0.8 H Eos # 0.0 Baso # 0.01 PT 11.4 INR 1.06 APTT 28.2 Sodium 138 Potassium 3.6 Chloride 103 Carbon Dioxide 26 Anion Gap 13 BUN 16 Creatinine 0.8 Est GFR ( Amer) > 60 Est GFR (Non-Af Amer) > 60 Random Glucose 133 H Calcium 8.3 L Total Bilirubin 1.0 AST 22 ALT 37 Alkaline Phosphatase 66 Total Protein 7.0 Albumin 3.7 Globulin 3.3 Albumin/Globulin Ratio 1.1 Blood Type Blood Type Confirm Antibody Screen Crossmatch BBK History Checked EKG/Cardiology Studies: Cardiology / EKG Studies 04/29/17 23:30 ELECTROCARDIOGRAM Stat Comment: Reason For Exam: ABDOMINAL PAIN Review of Systems - Review of Systems All systems: reviewed and no additional remarkable complaints except - Constitutional Constitutional: absent: Fever, Chills - Cardiovascular Cardiovascular: UNREMARKABLE. absent: Chest Pain, Palpitations - Respiratory Respiratory: UNREMARKABLE. absent: Cough - Gastrointestinal Gastrointestinal: Abdominal Pain, Change in Bowel Habits, Diarrhea. absent: Constipation, Hematemesis, Hematochezia, Melena, Nausea, Vomiting - Integumentary Integumentary: UNREMARKABLE - Neurological Neurological: UNREMARKABLE - Psychiatric Psychiatric: UNREMARKABLE Critical Care Progress Note - Extremities/Vascular Does the Patient have a Central Venous Catheter?: No Does the Patient need a Central Venous Catheter?: No Does the Patient have a Espinal Catheter?: No Does the Patient need a Espinal Catheter?: No - Prophylaxis GI Prophylaxis GI: PPI - Prophylaxis DVT Prophylaxis DVT: SCDs - Nutrition Nutrition: Nutrition Category Date Time Status NPO Diet [DIET] Diets 04/29/17 Dinner Ordered Assessment/Plan - Assessment and Plan (Free Text) Assessment: 47M w/acute perforated diverticulitis w/free air, for OR today. Plan: Neuro AOx3 Stable CVS Normotensive Tachycardia in low 100's- likely 2/2 pain Stable Pulm Tachypneic Ilsa 91% on RA Target SaO2> 94% Monitor Nephro BUN/Cr WNL Electrolytes WNL Stable GI Acute perf'd diverticulitis NPO Cipro Flagyl Dilaudid LR@150 Zofran Protonix Type and Screen HOB to 30 Plan for OR today Voids freely ID Febrile over last 24H, Tmax 101.5 Leukocytosis 11.5 from 13.6 On Cipro, Flagyl Montior Heme Hgb 13.5 from 15.8 Hct 38.4 from 43.9 Coags WNL Montior GI/DVT ppx SCDs Protonix Dispo Plans for OR today Will DW attending Brandy, PGY-1 - Date & Time Date: 04/30/17 Time: 07:15 <Pankaj Kingsley - Last Filed: 04/30/17 12:39> CCU Objective - Vital Signs / Intake & Output Vital Signs (Last 4 hours): Vital Signs Temp Pulse Resp BP Pulse Ox 04/30/17 11:57 99.6 F 99 H 17 164/95 H 96 04/30/17 11:42 99.6 F 101 H 17 152/89 H 96 04/30/17 11:27 99.6 F 103 H 17 153/92 H 96 04/30/17 11:12 99.6 F 103 H 15 158/88 H 95 04/30/17 10:57 99.6 F 101 H 13 148/92 H 93 L Intake and Output (Last 8hrs): Intake & Output 04/29/17 04/30/17 04/30/17 22:59 06:59 14:59 Intake Total 1450 200 Output Total 250 45 Balance 1200 155 Weight 238 lb Intake: IV 1450 200 Left Antecubital 1450 Oral 0 Output: Urine 250 45 Urine, Voided 250 Other: # Voids Urine, Voided 1 # Bowel Movements 0 - Medications Active Medications: Active Medications Generic Name Dose Route Start Last Admin Trade Name Freq PRN Reason Stop Dose Admin Heparin Sodium (Porcine) 5,000 units 05/01/17 10:00 Heparin SC Q12 FRANSICO Protocol Hydromorphone HCl 1 mg 04/30/17 11:07 04/30/17 12:05 Dilaudid IVP 1 mg Q4H PRN Administration Pain, moderate (4-7) Metronidazole 500 mg in 100 mls @ 100 mls/hr 04/29/17 23:30 04/30/17 05:11 Flagyl IVPB 100 mls/hr Q8 FRANSICO Administration Protocol Lactated Ringer's 1,000 mls @ 150 mls/hr 04/29/17 23:27 04/30/17 12:33 Lactated Ringer's IV 150 mls/hr .Q6H40M FRANSICO Administration Ciprofloxacin 400 mg in 200 mls @ 200 mls/hr 04/30/17 20:00 Cipro 400mg/200ml Dsw IVPB 0800,2000 FRANSICO Ondansetron HCl 4 mg 04/29/17 23:24 Zofran Inj IVP Q6H PRN Nausea/Vomiting Ondansetron HCl 4 mg 04/30/17 07:48 Zofran Inj IVP ONCE PRN Nausea/Vomiting Pantoprazole Sodium 40 mg 04/30/17 10:00 04/30/17 12:34 Protonix Inj IVP 40 mg DAILY FRANSICO Administration - Patient Studies Lab Studies: Lab Studies 04/30/17 04/30/17 04/30/17 Range/Units 06:40 06:40 06:40 WBC 11.5 H (4.5-11.0) 10^3/ul RBC 4.47 (3.5-6.1) 10^6/uL Hgb 13.5 L D (14.0-18.0) g/dL Hct 38.4 L (42.0-52.0) % MCV 85.9 (80.0-105.0) fl MCH 30.2 (25.0-35.0) pg MCHC 35.2 (31.0-37.0) g/dl RDW 13.0 (11.5-14.5) % Plt Count 175 (120.0-450.0) 10^3/uL MPV 9.6 (7.0-11.0) fl Gran % 80.4 H (50.0-68.0) % Lymph % (Auto) 12.0 L (22.0-35.0) % [place] % (Auto) 7.3 H (1.0-6.0) % Eos % (Auto) 0.2 L (1.5-5.0) % Baso % (Auto) 0.1 (0.0-3.0) % Gran # 9.27 H (1.4-6.5) Lymph # 1.4 (1.2-3.4) [place] # 0.8 H (0.1-0.6) Eos # 0.0 (0.0-0.7) Baso # 0.01 (0.0-2.0) K/mm3 PT 11.4 (9.9-11.8) Seconds INR 1.06 (0.93-1.08) APTT 28.2 (23.7-30.8) Seconds Sodium 138 (132-148) mmol/L Potassium 3.6 (3.6-5.0) mmol/L Chloride 103 (98-107) mmol/L Carbon Dioxide 26 (21-33) mmol/L Anion Gap 13 (10-20) BUN 16 (7-21) mg/dL Creatinine 0.8 (0.5-1.4) mg/dL Est GFR ( Amer) > 60 Est GFR (Non-Af Amer) > 60 Random Glucose 133 H (70-110) mg/dL Calcium 8.3 L (8.4-10.5) mg/dL Total Bilirubin 1.0 (0.2-1.3) mg/dL AST 22 (17-59) U/L ALT 37 (7-56) U/L Alkaline Phosphatase 66 (38-126) U/L Total Protein 7.0 (5.8-8.3) g/dL Albumin 3.7 (3.0-4.8) g/dL Globulin 3.3 gm/dL Albumin/Globulin Ratio 1.1 (1.1-1.8) Blood Type Blood Type Confirm Antibody Screen Crossmatch BBK History Checked 04/30/17 04/29/17 04/29/17 Range/Units 00:30 23:45 23:45 WBC (4.5-11.0) 10^3/ul RBC (3.5-6.1) 10^6/uL Hgb (14.0-18.0) g/dL Hct (42.0-52.0) % MCV (80.0-105.0) fl MCH (25.0-35.0) pg MCHC (31.0-37.0) g/dl RDW (11.5-14.5) % Plt Count (120.0-450.0) 10^3/uL MPV (7.0-11.0) fl Gran % (50.0-68.0) % Lymph % (Auto) (22.0-35.0) % [place] % (Auto) (1.0-6.0) % Eos % (Auto) (1.5-5.0) % Baso % (Auto) (0.0-3.0) % Gran # (1.4-6.5) Lymph # (1.2-3.4) [place] # (0.1-0.6) Eos # (0.0-0.7) Baso # (0.0-2.0) K/mm3 PT 11.4 (9.9-11.8) Seconds INR 1.06 (0.93-1.08) APTT 27.8 (23.7-30.8) Seconds Sodium (132-148) mmol/L Potassium (3.6-5.0) mmol/L Chloride (98-107) mmol/L Carbon Dioxide (21-33) mmol/L Anion Gap (10-20) BUN (7-21) mg/dL Creatinine (0.5-1.4) mg/dL Est GFR ( Amer) Est GFR (Non-Af Amer) Random Glucose (70-110) mg/dL Calcium (8.4-10.5) mg/dL Total Bilirubin (0.2-1.3) mg/dL AST (17-59) U/L ALT (7-56) U/L Alkaline Phosphatase (38-126) U/L Total Protein (5.8-8.3) g/dL Albumin (3.0-4.8) g/dL Globulin gm/dL Albumin/Globulin Ratio (1.1-1.8) Blood Type A POSITIVE Blood Type Confirm A POSITIVE Antibody Screen Negative Crossmatch See Detail BBK History Checked No verified bt Laboratory Results - last 24 hr 04/29/17 04/29/17 04/30/17 23:45 23:45 00:30 WBC RBC Hgb Hct MCV MCH MCHC RDW Plt Count MPV Gran % Lymph % (Auto) [place] % (Auto) Eos % (Auto) Baso % (Auto) Gran # Lymph # [place] # Eos # Baso # PT 11.4 INR 1.06 APTT 27.8 Sodium Potassium Chloride Carbon Dioxide Anion Gap BUN Creatinine Est GFR ( Amer) Est GFR (Non-Af Amer) Random Glucose Calcium Total Bilirubin AST ALT Alkaline Phosphatase Total Protein Albumin Globulin Albumin/Globulin Ratio Blood Type A POSITIVE Blood Type Confirm A POSITIVE Antibody Screen Negative Crossmatch See Detail BBK History Checked No verified bt 04/30/17 04/30/17 04/30/17 06:40 06:40 06:40 WBC 11.5 H RBC 4.47 Hgb 13.5 L D Hct 38.4 L MCV 85.9 MCH 30.2 MCHC 35.2 RDW 13.0 Plt Count 175 MPV 9.6 Gran % 80.4 H Lymph % (Auto) 12.0 L [place] % (Auto) 7.3 H Eos % (Auto) 0.2 L Baso % (Auto) 0.1 Gran # 9.27 H Lymph # 1.4 [place] # 0.8 H Eos # 0.0 Baso # 0.01 PT 11.4 INR 1.06 APTT 28.2 Sodium 138 Potassium 3.6 Chloride 103 Carbon Dioxide 26 Anion Gap 13 BUN 16 Creatinine 0.8 Est GFR ( Amer) > 60 Est GFR (Non-Af Amer) > 60 Random Glucose 133 H Calcium 8.3 L Total Bilirubin 1.0 AST 22 ALT 37 Alkaline Phosphatase 66 Total Protein 7.0 Albumin 3.7 Globulin 3.3 Albumin/Globulin Ratio 1.1 Blood Type Blood Type Confirm Antibody Screen Crossmatch BBK History Checked EKG/Cardiology Studies: Cardiology / EKG Studies 04/29/17 23:30 ELECTROCARDIOGRAM Stat Comment: Reason For Exam: ABDOMINAL PAIN Critical Care Progress Note - Nutrition Nutrition: Nutrition Category Date Time Status NPO Diet [DIET] Diets 04/29/17 Dinner Ordered Assessment/Plan - Assessment and Plan (Free Text) Plan: Patient seen and examined. Agree with Dr Nava note. 47M w/acute perforated diverticulitis w/free air, s/p OR exploration today, doing well post OP Afebrile, HD stable, comfortable, pain is well controlled Recommend: - IV Abx - Pain control - NPO - IVF - monitor HH - Anti-pyretics - DVT ppx - Monitor in MICU
[2017-04-30] MEDS ORDERED: HYDROmorphone 0.5 mg/0.5 ml ISec IVP PRN (07:48)
[2017-04-30] MEDS ORDERED: Propofol 10 mg/ml Inj (20 ML) ONE (07:56)
[2017-04-30] MEDS ORDERED: Rocuronium 10 mg/ml (5 ml) ONE (07:57)
[2017-04-30] MEDS ORDERED: Midazolam 2 MG/2 ML VIAL ONE (07:57)
[2017-04-30] MEDS ORDERED: Lactated Ringer's 1,000 ML IV SCH (08:00)
[2017-04-30] MEDS ORDERED: Ciprofloxacin 400mg/200ml D5W 400 MG/200 ML BAG IVPB ONE (08:03)
--- NOTE | 2017-04-30 08:06 | RAD ---
HISTORY: pre op COMPARISON: No prior. FINDINGS: LUNGS: No active pulmonary disease. PLEURA: No significant pleural effusion identified, no pneumothorax apparent. CARDIOVASCULAR: Normal. OSSEOUS STRUCTURES: No significant abnormalities. VISUALIZED UPPER ABDOMEN: Normal. OTHER FINDINGS: None. IMPRESSION: No acute cardiopulmonary disease appreciated.
[2017-04-30] MEDS ORDERED: ePHEDrine 50 mg/ml Inj ONE (08:45)
[2017-04-30] MEDS ORDERED: Phenylephrine 10 mg/ml Inj ONE (08:46)
[2017-04-30] MEDS ORDERED: Ciprofloxacin 400mg/200ml D5W 400 MG/200 ML BAG IVPB SCH (10:00)
[2017-04-30] MEDS ORDERED: Neostigmine Methylsulfate 3mg/3ml Syringe IV ONE (10:17)
[2017-04-30] MEDS ORDERED: Glycopyrrolate 0.2 mg/ml (2ml vial) ONE (10:19)
[2017-04-30] MEDS ORDERED: Liquid Adhesive TOP ONE (10:29)
--- NOTE | 2017-04-30 11:05 | PCM.SURG1 ---
Surgeon's Initial Post Op Note - Surgeon's Notes Surgeon: MD Param Admissions Officer: , PGY4. Camilo, PGY2, Yasir PGY1 Pre-Operative Diagnosis: Perforated Diverticulitis Operative Findings: perforated diverticulum Post-Operative Diagnosis: Perforated diverticulitis Operation Performed: Exploratory laparotomy, Sigmoidectomy, stoma formation Specimen/Specimens Removed: sigmoid Estimated Blood Loss: EBL {In ML}: 150 Drains Used: Jazz Story Date of Surgery/Procedure: 04/30/17 Time of Surgery/Procedure: 09:00
[2017-04-30] MEDS ORDERED: HYDROmorphone 1 mg/ml ISec IVP PRN (11:07)
[2017-04-30] MEDS ORDERED: HYDROmorphone 0.5 mg/0.5 ml ISec ONE ×2 (11:50→12:04)
[2017-04-30] MEDS ORDERED: HYDROmorphone 0.5 mg/0.5 ml ISec IVP ONE ×2 (11:50→12:05)
--- NOTE | 2017-04-30 15:46 | CARD ---
APPROVED REPORT EKG Measurement Heart [id number] <Conclusion> Sinus tachycardia Otherwise normal ECG
[2017-04-30] MEDS: HYDROmorphone 1 mg/ml ISec IVP PRN ×2 (17:15→21:15)
[2017-04-30] MEDS: Ciprofloxacin 400mg/200ml D5W 400 MG/200 ML BAG IVPB SCH (20:06)
[2017-05-01] MEDS: HYDROmorphone 1 mg/ml ISec IVP PRN ×4 (00:41→13:10)
[2017-05-01] MEDS: Lactated Ringer's 1,000 ML IV SCH ×3 (02:10→17:42)
[2017-05-01] MEDS: metroNIDAZOLE IV 500 mg/100 ml 500 MG/100 ML BAG IVPB SCH ×3 (05:18→22:05)
[2017-05-01 07:35] LABS: MAGNESIUM 2.1 mg/dL (1.7-2.2); PHOSPHOROUS 2.5 mg/dL (2.5-4.5)
[2017-05-01] MEDS: Ciprofloxacin 400mg/200ml D5W 400 MG/200 ML BAG IVPB SCH ×2 (08:28→22:04)
--- NOTE | 2017-05-01 09:05 | CP.PCM.PN ---
Subjective - Date & Time of Evaluation Date of Evaluation: 05/01/17 Time of Evaluation: 07:00 - Subjective Subjective: SURGERY PROGRESS NOTE FOR DR. BONILLA 47M seen and examined at bedside. Patient states he has been having pain overnight. States the pain medication only help a little. Denies nausea, vomiting, fevers, chills. Objective - Vital Signs/Intake and Output Vital Signs (last 24 hours): Temp Pulse Resp BP Pulse Ox 98.8 F 99 H 29 H 136/83 98 05/01/17 04:00 05/01/17 06:30 05/01/17 06:20 05/01/17 06:00 05/01/17 06:30 Intake and Output: 05/01/17 05/01/17 06:59 18:59 Intake Total 2000 Output Total 500 Balance 1500 - Medications Medications: Current Medications Heparin Sodium (Porcine) (Heparin) 5,000 units SC Q12 FRANSICO PRN Reason: Protocol Hydromorphone HCl (Dilaudid) 1 mg IVP Q4H PRN PRN Reason: Pain, severe (8-10) Last Admin: 05/01/17 08:29 Dose: 1 mg Metronidazole (Flagyl) 500 mg in 100 mls @ 100 mls/hr IVPB Q8 FRANSICO PRN Reason: Protocol Last Admin: 05/01/17 05:18 Dose: 100 mls/hr Lactated Ringer's (Lactated Ringer's) 1,000 mls @ 150 mls/hr IV .Q6H40M [facility] Last Admin: 05/01/17 08:25 Dose: 150 mls/hr Ciprofloxacin (Cipro 400mg/200ml Dsw) 400 mg in 200 mls @ 200 mls/hr IVPB 0800, 2000 [facility] Last Admin: 05/01/17 08:28 Dose: 200 mls/hr Acetaminophen (Ofirmev) 1,000 mg in 100 mls @ 400 mls/hr IVPB Q6H PRN PRN Reason: Pain, moderate (4-7) Stop: 05/02/17 13:21 Last Admin: 04/30/17 18:13 Dose: 400 mls/hr Ketorolac Tromethamine (Toradol) 30 mg IVP Q6H FRANSICO Stop: 05/03/17 03:01 Ondansetron HCl (Zofran Inj) 4 mg IVP Q6H PRN PRN Reason: Nausea/Vomiting Ondansetron HCl (Zofran Inj) 4 mg IVP ONCE PRN PRN Reason: Nausea/Vomiting Pantoprazole Sodium (Protonix Inj) 40 mg IVP DAILY FRANSICO Last Admin: 04/30/17 12:34 Dose: 40 mg - Labs Labs: 04/30/17 06:40 04/30/17 06:40 PT 11.4 Seconds (9.9-11.8) 04/30/17 06:40 INR 1.06 (0.93-1.08) 04/30/17 06:40 APTT 28.2 Seconds (23.7-30.8) 04/30/17 06:40 - Constitutional Appears: Non-toxic, No Acute Distress - Respiratory Exam Respiratory Exam: Clear to Ausculation Bilateral, NORMAL BREATHING PATTERN - Cardiovascular Exam Cardiovascular Exam: REGULAR RHYTHM, +S1, +S2 - GI/Abdominal Exam GI & Abdominal Exam: Soft, Tenderness. absent: Distended, Firm, Guarding, Rigid , Rebound Additional comments: ostomy is nice and pink, no output currently. drain output is serosanguinous - Neurological Exam Neurological Exam: Alert, Awake - Psychiatric Exam Psychiatric exam: Normal Affect, Normal Mood - Skin Skin Exam: Dry, Intact, Normal Color, Warm Assessment and Plan - Assessment and Plan (Free Text) Assessment: 47M s/p ex-laparotomy with sigmoidectomy and colostomy formation POD1, for perforated diverticilitis Plan: - Advance diet to clear liquids - follow up labs - pain control, continue antibiotics - DC mcmanus - monitor drain output/ostomy output - Can be moved out the ICU Discussed with Dr. Param Page, PGY2
[2017-05-01 11:00] LABS: BASO # 0.01 K/mm3 (0.0-2.0); BASO % 0.1 % (0.0-3.0); EOS % 0.2 % (1.5-5.0); GRAN # 7.19 (1.4-6.5); GRAN % 81.1 % (50.0-68.0); HEMATOCRIT 37.9 % (42.0-52.0); LYMPH # 0.8 (1.2-3.4); LYMPH % 9.1 % (22.0-35.0); MEAN CELL VOLUME 87.7 fl (80.0-105.0); MEAN CORPUSCULAR HEMOGLOBIN 30.3 pg (25.0-35.0); MEAN CORPUSCULAR HGB CONC 34.6 g/dl (31.0-37.0); MEAN PLATELET VOLUME 9.8 fl (7.0-11.0); MONO # 0.8 (0.1-0.6); MONO % 9.5 % (1.0-6.0); RED CELL DISTRIBUTION WIDTH 13.2 % (11.5-14.5); WHITE BLOOD COUNT 8.9 10^3/ul (4.5-11.0)
[2017-05-01 11:01] LABS: ALKALINE PHOSPHATASE 63 U/L (38-126); ALT/SGPT 40 U/L (7-56); AST/SGOT 27 U/L (17-59); BILIRUBIN,TOTAL 0.8 mg/dL (0.2-1.3); BLOOD UREA NITROGEN 18 mg/dL (7-21); CALCIUM 8.5 mg/dL (8.4-10.5); CARBON DIOXIDE 28 mmol/L (21-33); CHLORIDE 101 mmol/L (95-110); GFR AFRICAN-AMERICAN > 60; GLUCOSE,RANDOM 183 mg/dL (70-110); SODIUM 139 mmol/L (132-148); TOTAL PROTEIN 6.6 g/dL (5.8-8.3)
--- NOTE | 2017-05-01 16:26 | CP.CCUPN ---
CCU Subjective - Physician Review Subjective (Free Text): 05/01/17 16:23 Patient seen and examined at bedside in the ICU. No acute events overnight. Only complaint is post-op discomfort/pain, alleviated but not fully controlled with current pain regimen. Denies bowel movement or flatus into colostomy. CCU Objective - Vital Signs / Intake & Output Vital Signs (Last 4 hours): Vital Signs Temp Pulse Resp BP Pulse Ox 05/01/17 12:30 97.3 F L 102 H 18 142/92 H 96 Intake and Output (Last 8hrs): Intake & Output 05/01/17 05/01/17 05/01/17 06:59 14:59 22:59 Intake Total 2000 Output Total 500 Balance 1500 Intake: IV 2000 Left Hand 2000 Oral 0 Output: Urine 500 Urine, Voided 500 Other: # Bowel Movements 0 - Physical Exam Head: Positive for: Atraumatic, Normocephalic Pupils: Positive for: PERRL. Negative for: Non-Reactive, Pinpoint Extroacular Muscles: Positive for: EOMI. Negative for: Gaze Palsy Conjunctiva: Positive for: Normal. Negative for: Injected, Icteric Mouth: Positive for: Moist Mucous Membranes. Negative for: Drooling Nose (External): Positive for: Atraumatic. Negative for: Abrasion, Contusion, Laceration Neck: Positive for: Normal Range of Motion, Trachea Midline. Negative for: Meningeal Signs Respiratory/Chest: Positive for: Clear to Auscultation, Good Air Exchange. Negative for: Respiratory Distress, Accessory Muscle Use, Wheezes, Rales, Rhonchi Cardiovascular: Positive for: Regular Rate and Rhythm, Normal S1, S2, Peripheal Pulses Present (radials +2 bilaterally). Negative for: Murmurs, Irregular Rhythm Abdomen: Positive for: Tenderness (diffuse abdominal tenderness), Other (R- sided colostomy, no gross stool in bag, ostomy appears patent, no signs of ischemia). Negative for: Distention Upper Extremity: Positive for: Normal Inspection, Normal ROM, NORMAL PULSES. Negative for: Cyanosis, Edema Lower Extremity: Positive for: Normal Inspection, Edema (trace ) Neurological: Positive for: GCS=15, CN II-XII Intact, Speech Normal Skin: Positive for: Warm, Dry, Normal Color. Negative for: Rashes Lymphatic: Negative for: Cervical Adenopathy, Axillary Adenopathy, Inguinal Adenopathy, Other Psychiatric: Positive for: Alert, Oriented x 3 - Medications Active Medications: Active Medications Generic Name Dose Route Start Last Admin Trade Name Freq PRN Reason Stop Dose Admin Heparin Sodium (Porcine) 5,000 units 05/01/17 10:00 Heparin SC Q12 [facility] Protocol Hydromorphone HCl 1 mg 04/30/17 13:21 05/01/17 13:10 Dilaudid IVP 1 mg Q4H PRN Administration Pain, severe (8-10) Metronidazole 500 mg in 100 mls @ 100 mls/hr 04/29/17 23:30 05/01/17 13:13 Flagyl IVPB 100 mls/hr Q8 [facility] Administration Protocol Lactated Ringer's 1,000 mls @ 150 mls/hr 04/29/17 23:27 05/01/17 08:25 Lactated Ringer's IV 150 mls/hr .Q6H40M [facility] Administration Ciprofloxacin 400 mg in 200 mls @ 200 mls/hr 04/30/17 20:00 05/01/17 08:28 Cipro 400mg/200ml Dsw IVPB 200 mls/hr 0800,2000 [facility] Administration Acetaminophen 1,000 mg in 100 mls @ 400 mls/hr 04/30/17 13:20 04/30/17 18:13 Ofirmev IVPB 05/02/17 13:21 400 mls/hr Q6H PRN Administration Pain, moderate (4-7) Ketorolac Tromethamine 30 mg 05/01/17 09:00 05/01/17 15:01 Toradol IVP 05/03/17 03:01 30 mg Q6H [facility] Administration Ondansetron HCl 4 mg 04/29/17 23:24 05/01/17 13:10 Zofran Inj IVP 4 mg Q6H PRN Administration Nausea/Vomiting Ondansetron HCl 4 mg 04/30/17 07:48 Zofran Inj IVP ONCE PRN Nausea/Vomiting Pantoprazole Sodium 40 mg 04/30/17 10:00 05/01/17 13:13 Protonix Inj IVP 40 mg DAILY [facility] Administration - Patient Studies Lab Studies: Microbiology Studies 04/30/17 13:58 Gram Stain - Final Abdomen Wound Culture - Preliminary NO GROWTH AFTER 24 HOURS Lab Studies 05/01/17 05/01/17 05/01/17 Range/Units 10:30 10:30 05:20 WBC 8.9 D (4.5-11.0) 10^3/ul RBC 4.32 (3.5-6.1) 10^6/uL Hgb 13.1 L (14.0-18.0) g/dL Hct 37.9 L (42.0-52.0) % MCV 87.7 (80.0-105.0) fl MCH 30.3 (25.0-35.0) pg MCHC 34.6 (31.0-37.0) g/dl RDW 13.2 (11.5-14.5) % Plt Count 186 (120.0-450.0) 10^3/uL MPV 9.8 (7.0-11.0) fl Gran % 81.1 H (50.0-68.0) % Lymph % (Auto) 9.1 L (22.0-35.0) % Turner % (Auto) 9.5 H (1.0-6.0) % Eos % (Auto) 0.2 L (1.5-5.0) % Baso % (Auto) 0.1 (0.0-3.0) % Gran # 7.19 H (1.4-6.5) Lymph # 0.8 L (1.2-3.4) Turner # 0.8 H (0.1-0.6) Eos # 0.0 (0.0-0.7) Baso # 0.01 (0.0-2.0) K/mm3 Sodium 139 (132-148) mmol/L Potassium 4.0 (3.6-5.0) mmol/L Chloride 101 (95-110) mmol/L Carbon Dioxide 28 (21-33) mmol/L Anion Gap 14 (10-20) BUN 18 (7-21) mg/dL Creatinine 0.9 (0.5-1.4) mg/dL Est GFR ( Amer) > 60 Est GFR (Non-Af Amer) > 60 Random Glucose 183 H (70-110) mg/dL Calcium 8.5 (8.4-10.5) mg/dL Phosphorus 2.5 (2.5-4.5) mg/dL Magnesium 2.1 (1.7-2.2) mg/dL Total Bilirubin 0.8 (0.2-1.3) mg/dL AST 27 (17-59) U/L ALT 40 (7-56) U/L Alkaline Phosphatase 63 (38-126) U/L Total Protein 6.6 (5.8-8.3) g/dL Albumin 3.2 (3.0-4.8) g/dL Globulin 3.4 gm/dL Albumin/Globulin Ratio 1.0 L (1.1-1.8) Laboratory Results - last 24 hr 05/01/17 05/01/17 05/01/17 05:20 10:30 10:30 WBC 8.9 D RBC 4.32 Hgb 13.1 L Hct 37.9 L MCV 87.7 MCH 30.3 MCHC 34.6 RDW 13.2 Plt Count 186 MPV 9.8 Gran % 81.1 H Lymph % (Auto) 9.1 L Turner % (Auto) 9.5 H Eos % (Auto) 0.2 L Baso % (Auto) 0.1 Gran # 7.19 H Lymph # 0.8 L Turner # 0.8 H Eos # 0.0 Baso # 0.01 Sodium 139 Potassium 4.0 Chloride 101 Carbon Dioxide 28 Anion Gap 14 BUN 18 Creatinine 0.9 Est GFR ( Amer) > 60 Est GFR (Non-Af Amer) > 60 Random Glucose 183 H Calcium 8.5 Phosphorus 2.5 Magnesium 2.1 Total Bilirubin 0.8 AST 27 ALT 40 Alkaline Phosphatase 63 Total Protein 6.6 Albumin 3.2 Globulin 3.4 Albumin/Globulin Ratio 1.0 L Critical Care Progress Note - Nutrition Nutrition: Nutrition Category Date Time Status Liquid Diet [DIET] Diets 05/01/17 Breakfast Ordered
--- NOTE | 2017-05-01 20:04 | OP ---
PROCEDURE DATE: PREOPERATIVE DIAGNOSIS: Perforated diverticulitis. POSTOPERATIVE DIAGNOSIS: Perforated diverticulitis. OPERATION PERFORMED: Alysia's procedure. DESCRIPTION OF PROCEDURE: In the operating room, the patient was identified by name, name of the procedure, laterality, my donald. The Espinal was placed with an orogastric tube. Perioperative antibiotics were given. The abdomen was entered through over midline incision, somewhat a little bit to the right of midline. The abdomen was entered and explored. It was cultured aerobically and anaerobically. The duodenum was unremarkable. There was nothing else remarkable. There was no free fluid, but have markedly inflamed. Sigmoid colon was identified. This was freed up from the small bowel by blunt dissection and the fragment removed. The line of Toldt was then divided and the sigmoid from the retroperitoneal tissue. It was freed above and below distally. It was divided with a TA-90 as a MASOUD could not be fit in. It was then cut. The mesentery was then scored and serially taken off to a separate cut that was taken with MASOUD above the mass. The mesentery was then removed with a harmonic and the mass removed. It was opened, eventually there was a perforation in this material. Noting that there is edema above and below, no further anastomosis was considered. The line of Toldt was then mobilized nicely and was made through little bit higher than usual in the left abdomen. It was dilated with 3 fingers as it was very edematous and fat. It was then eventually matured to the skin with Vicryl. The abdomen was copiously irrigated and dried. A Jez was placed in the left side of the pelvis and the incision was closed with running #1 PDS above and below, approximately 3 were placed. Incision was then closed over [place] and ton. Injected with Marcaine. The patient was taken to recovery room in good condition after sponge and needle counts was quite correct. Massimo Virgen MD
[2017-05-02] MEDS: Lactated Ringer's 1,000 ML IV SCH ×2 (02:41→05:39)
[2017-05-02] MEDS: metroNIDAZOLE IV 500 mg/100 ml 500 MG/100 ML BAG IVPB SCH ×4 (05:37→22:19)
[2017-05-02 07:07] LABS: BASO # 0.01 K/mm3 (0.0-2.0); BASO % 0.2 % (0.0-3.0); EOS # 0.1 (0.0-0.7); EOS % 1.8 % (1.5-5.0); GRAN # 4.85 (1.4-6.5); GRAN % 73.9 % (50.0-68.0); HEMATOCRIT 34.2 % (42.0-52.0); LYMPH # 1.1 (1.2-3.4); LYMPH % 16.9 % (22.0-35.0); MEAN CELL VOLUME 86.6 fl (80.0-105.0); MEAN CORPUSCULAR HEMOGLOBIN 29.9 pg (25.0-35.0); MEAN CORPUSCULAR HGB CONC 34.5 g/dl (31.0-37.0); MEAN PLATELET VOLUME 9.6 fl (7.0-11.0); MONO # 0.5 (0.1-0.6); MONO % 7.2 % (1.0-6.0); RED CELL DISTRIBUTION WIDTH 13.1 % (11.5-14.5); WHITE BLOOD COUNT 6.6 10^3/ul (4.5-11.0)
[2017-05-02 07:21] LABS: ALKALINE PHOSPHATASE 60 U/L (38-126); ALT/SGPT 32 U/L (7-56); AST/SGOT 30 U/L (17-59); BILIRUBIN,TOTAL 0.6 mg/dL (0.2-1.3); BLOOD UREA NITROGEN 20 mg/dL (7-21); CALCIUM 8.2 mg/dL (8.4-10.5); CARBON DIOXIDE 28 mmol/L (21-33); CHLORIDE 103 mmol/L (98-107); GFR AFRICAN-AMERICAN > 60; GLUCOSE,RANDOM 107 mg/dL (70-110); POTASSIUM 3.3 mmol/L (3.6-5.0); SODIUM 140 mmol/L (132-148); TOTAL PROTEIN 6.2 g/dL (5.8-8.3)
[2017-05-02] MEDS: Ciprofloxacin 400mg/200ml D5W 400 MG/200 ML BAG IVPB SCH ×2 (08:38→20:53)
--- NOTE | 2017-05-02 08:38 | CP.PCM.PN ---
Subjective - Date & Time of Evaluation Date of Evaluation: 05/02/17 Time of Evaluation: 07:45 - Subjective Subjective: SURGERY NOTE FOR DR. BONILLA 47M seen and examined at bedside. Patient states pain is controlled. Admits to passing gas out the stoma, tolerating diet, ambulating, no nausea, vomiting. Objective - Vital Signs/Intake and Output Vital Signs (last 24 hours): Temp Pulse Resp BP Pulse Ox 97.3 F L 102 H 18 142/92 H 96 05/01/17 12:30 05/01/17 12:30 05/01/17 12:30 05/01/17 12:30 05/01/17 12:30 Intake and Output: 05/02/17 05/02/17 06:59 18:59 Intake Total 1380 Output Total 1320 Balance 60 - Medications Medications: Current Medications Heparin Sodium (Porcine) (Heparin) 5,000 units SC Q12 [facility] PRN Reason: Protocol Last Admin: 05/01/17 22:05 Dose: 5,000 units Hydromorphone HCl (Dilaudid) 1 mg IVP Q4H PRN PRN Reason: Pain, severe (8-10) Last Admin: 05/01/17 13:10 Dose: 1 mg Metronidazole (Flagyl) 500 mg in 100 mls @ 100 mls/hr IVPB Q8 [facility] PRN Reason: Protocol Last Admin: 05/02/17 05:38 Dose: 100 mls/hr Ciprofloxacin (Cipro 400mg/200ml Dsw) 400 mg in 200 mls @ 200 mls/hr IVPB 0800, 2000 [facility] Last Admin: 05/01/17 22:04 Dose: 200 mls/hr Acetaminophen (Ofirmev) 1,000 mg in 100 mls @ 400 mls/hr IVPB Q6H PRN PRN Reason: Pain, moderate (4-7) Stop: 05/02/17 13:21 Last Admin: 04/30/17 18:13 Dose: 400 mls/hr Lactated Ringer's (Lactated Ringer's) 1,000 mls @ 75 mls/hr IV .[id number] [facility] Last Admin: 05/02/17 05:39 Dose: 75 mls/hr Ketorolac Tromethamine (Toradol) 30 mg IVP Q6H [facility] Stop: 05/03/17 03:01 Last Admin: 05/02/17 02:39 Dose: 30 mg Ondansetron HCl (Zofran Inj) 4 mg IVP Q6H PRN PRN Reason: Nausea/Vomiting Last Admin: 05/01/17 13:10 Dose: 4 mg Pantoprazole Sodium (Protonix Inj) 40 mg IVP DAILY [facility] Last Admin: 05/01/17 13:13 Dose: 40 mg Potassium Chloride (K-Dur 20 Meq Er Tab) 40 meq PO BRK [facility] - Labs Labs: 05/02/17 06:40 05/02/17 06:40 PT 11.4 Seconds (9.9-11.8) 04/30/17 06:40 INR 1.06 (0.93-1.08) 04/30/17 06:40 APTT 28.2 Seconds (23.7-30.8) 04/30/17 06:40 - Constitutional Appears: Non-toxic, No Acute Distress - Respiratory Exam Respiratory Exam: Clear to Ausculation Bilateral, NORMAL BREATHING PATTERN - Cardiovascular Exam Cardiovascular Exam: REGULAR RHYTHM, +S1, +S2 - GI/Abdominal Exam GI & Abdominal Exam: Soft. absent: Distended, Firm, Guarding, Rigid, Tenderness , Rebound Additional comments: incision clean dry intact with dressing in place. Ostomy bag air output. Drain output serosang, Assessment and Plan - Assessment and Plan (Free Text) Assessment: 47M s/p ex-laparotomy with sigmoidectomy and colostomy formation POD2, for perforated diverticilitis Plan: - Advance diet to full liquids - follow up labs - pain control, continue antibiotics - monitor drain output/ostomy output - encourage ambulation and incentive spirometer Further recs discuss with Dr. Param Page, PGY2
[2017-05-02] MEDS: HYDROmorphone 1 mg/ml ISec IVP PRN ×2 (18:35→23:15)
[2017-05-03] MEDS: metroNIDAZOLE IV 500 mg/100 ml 500 MG/100 ML BAG IVPB SCH ×3 (06:06→22:53)
[2017-05-03] MEDS ORDERED: Potassium Chloride 20 mEq ER Tab PO SCH (08:00)
[2017-05-03] MEDS: Potassium Chloride 20 mEq ER Tab PO SCH (09:44)
[2017-05-03] MEDS: Ciprofloxacin 400mg/200ml D5W 400 MG/200 ML BAG IVPB SCH ×2 (09:45→20:59)
[2017-05-03] MEDS: Lactated Ringer's 1,000 ML IV SCH ×2 (09:46→23:00)
--- NOTE | 2017-05-03 18:10 | CP.PCM.PN ---
Subjective - Date & Time of Evaluation Date of Evaluation: 05/03/17 Time of Evaluation: 10:40 - Subjective Subjective: Pt S&E this AM. No complaints. +loose stool in ostomy, +flatus. Tolerating soft regular diet. GABY drain output: 50cc/24hr, serosanguinous. Abdominal dressings changed, c/d/i. No erythema or purulent drainage noted along surgical incision site. Objective - Vital Signs/Intake and Output Vital Signs (last 24 hours): Temp Pulse Resp BP Pulse Ox 97.7 F 83 18 162/109 H 97 05/03/17 16:10 05/03/17 16:10 05/03/17 16:10 05/03/17 16:10 05/03/17 16:10 Intake and Output: 05/03/17 05/03/17 06:59 18:59 Intake Total 240 200 Output Total 250 Balance 240 -50 - Medications Medications: Current Medications Heparin Sodium (Porcine) (Heparin) 5,000 units SC Q12 [facility] PRN Reason: Protocol Last Admin: 05/03/17 09:45 Dose: 5,000 units Hydromorphone HCl (Dilaudid) 1 mg IVP Q4H PRN PRN Reason: Pain, severe (8-10) Last Admin: 05/02/17 23:15 Dose: 1 mg Metronidazole (Flagyl) 500 mg in 100 mls @ 100 mls/hr IVPB Q8 [facility] PRN Reason: Protocol Last Admin: 05/03/17 15:00 Dose: 100 mls/hr Ciprofloxacin (Cipro 400mg/200ml Dsw) 400 mg in 200 mls @ 200 mls/hr IVPB 0800, 2000 [facility] Last Admin: 05/03/17 09:45 Dose: 200 mls/hr Lactated Ringer's (Lactated Ringer's) 1,000 mls @ 75 mls/hr IV .[id number] [facility] Last Admin: 05/03/17 09:46 Dose: 75 mls/hr Ondansetron HCl (Zofran Inj) 4 mg IVP Q6H PRN PRN Reason: Nausea/Vomiting Last Admin: 05/01/17 13:10 Dose: 4 mg Pantoprazole Sodium (Protonix Inj) 40 mg IVP DAILY [facility] Last Admin: 05/03/17 09:46 Dose: 40 mg Potassium Chloride (K-Dur 20 Meq Er Tab) 40 meq PO BRK [facility] Last Admin: 05/03/17 09:44 Dose: 40 meq - Labs Labs: 05/02/17 06:40 05/02/17 06:40 PT 11.4 Seconds (9.9-11.8) 04/30/17 06:40 INR 1.06 (0.93-1.08) 04/30/17 06:40 APTT 28.2 Seconds (23.7-30.8) 04/30/17 06:40 - Constitutional Appears: No Acute Distress - Head Exam Head Exam: NORMOCEPHALIC - Eye Exam Eye Exam: Normal appearance - ENT Exam ENT Exam: Mucous Membranes Moist - Respiratory Exam Respiratory Exam: NORMAL BREATHING PATTERN - Cardiovascular Exam Cardiovascular Exam: +S1, +S2 - GI/Abdominal Exam GI & Abdominal Exam: Soft - Neurological Exam Neurological Exam: Alert, Awake, Oriented x3 - Psychiatric Exam Psychiatric exam: Normal Mood - Skin Skin Exam: Dry, Intact, Warm Assessment and Plan - Assessment and Plan (Free Text) Assessment: 47M s/p ex-laparotomy with sigmoidectomy and colostomy formation POD3, for perforated diverticulitis -Regular diet -F/u AM labs - c/w Abx -C/w analgesics - Monitor GABY drain output and ostomy output - Out of bed to chair. Encourage ambulation -Incentive spirometer -DVT/GI ppx Further recs discuss with Dr. Param Hernadez PGY-2
[2017-05-03] MEDS: HYDROmorphone 1 mg/ml ISec IVP PRN (21:05)
[2017-05-04] MEDS: metroNIDAZOLE IV 500 mg/100 ml 500 MG/100 ML BAG IVPB SCH ×3 (05:37→21:56)
[2017-05-04] MEDS: HYDROmorphone 1 mg/ml ISec IVP PRN (05:37)
[2017-05-04] MEDS: Potassium Chloride 20 mEq ER Tab PO SCH (10:35)
[2017-05-04] MEDS: Ciprofloxacin 400mg/200ml D5W 400 MG/200 ML BAG IVPB SCH ×2 (10:35→23:04)
--- NOTE | 2017-05-04 10:51 | CP.PCM.PN ---
Subjective - Date & Time of Evaluation Date of Evaluation: 05/04/17 Time of Evaluation: 06:55 - Subjective Subjective: SURGERY NOTE FOR DR. BONILLA 47M seen and examined at bedside. Patient denies pain, nausea, vomiting, fevers , chills. Has stool ostomy output. Objective - Vital Signs/Intake and Output Vital Signs (last 24 hours): Temp Pulse Resp BP Pulse Ox 98.2 F 82 20 162/109 H 97 05/04/17 07:36 05/04/17 07:36 05/04/17 07:36 05/03/17 16:10 05/04/17 07:36 Intake and Output: 05/04/17 05/04/17 06:59 18:59 Intake Total 600 Output Total 1100 Balance -500 - Medications Medications: Current Medications Heparin Sodium (Porcine) (Heparin) 5,000 units SC Q12 [facility] PRN Reason: Protocol Last Admin: 05/04/17 10:34 Dose: 5,000 units Hydromorphone HCl (Dilaudid) 1 mg IVP Q4H PRN PRN Reason: Pain, severe (8-10) Last Admin: 05/04/17 05:37 Dose: 1 mg Metronidazole (Flagyl) 500 mg in 100 mls @ 100 mls/hr IVPB Q8 [facility] PRN Reason: Protocol Last Admin: 05/04/17 05:37 Dose: 100 mls/hr Ciprofloxacin (Cipro 400mg/200ml Dsw) 400 mg in 200 mls @ 200 mls/hr IVPB 0800, 2000 [facility] Last Admin: 05/04/17 10:35 Dose: 200 mls/hr Lactated Ringer's (Lactated Ringer's) 1,000 mls @ 75 mls/hr IV .[id number] [facility] Last Admin: 05/03/17 23:00 Dose: 75 mls/hr Ondansetron HCl (Zofran Inj) 4 mg IVP Q6H PRN PRN Reason: Nausea/Vomiting Last Admin: 05/01/17 13:10 Dose: 4 mg Pantoprazole Sodium (Protonix Inj) 40 mg IVP DAILY [facility] Last Admin: 05/04/17 10:34 Dose: 40 mg Potassium Chloride (K-Dur 20 Meq Er Tab) 40 meq PO BRK [facility] Last Admin: 05/04/17 10:35 Dose: 40 meq - Labs Labs: 05/02/17 06:40 05/02/17 06:40 PT 11.4 Seconds (9.9-11.8) 04/30/17 06:40 INR 1.06 (0.93-1.08) 04/30/17 06:40 APTT 28.2 Seconds (23.7-30.8) 04/30/17 06:40 - Constitutional Appears: Non-toxic, No Acute Distress - Respiratory Exam Respiratory Exam: Clear to Ausculation Bilateral, NORMAL BREATHING PATTERN - Cardiovascular Exam Cardiovascular Exam: REGULAR RHYTHM, +S1, +S2 - GI/Abdominal Exam GI & Abdominal Exam: Soft. absent: Distended, Firm, Guarding, Rigid, Tenderness , Rebound Additional comments: incision clean dry intact Ostomy output - stool Jazz in place - Neurological Exam Neurological Exam: Alert, Awake Assessment and Plan - Assessment and Plan (Free Text) Assessment: 47M s/p hartmanns POD#4 Pathology: acute perf diverticulitis with abscess, no dysplasia Plan: -Regular diet -F/u AM labs -continue antibiotics -remove GABY drain -Out of bed to chair. Encourage ambulation -Incentive spirometer -DVT/GI ppx Further recs discuss with Dr. Param Page, PGY2
[2017-05-04] MEDS ORDERED: HYDROmorphone 0.5 mg/0.5 ml ISec IVP PRN (22:34)
[2017-05-05] MEDS: metroNIDAZOLE IV 500 mg/100 ml 500 MG/100 ML BAG IVPB SCH ×4 (06:31→21:55)
[2017-05-05] MEDS ORDERED: Oxycodone/Acetaminophen 5/325 mg Tab PO PRN (06:41)
[2017-05-05 08:42] LABS: BASO # 0.03 K/mm3 (0.0-2.0); BASO % 0.5 % (0.0-3.0); EOS # 0.2 (0.0-0.7); EOS % 3.4 % (1.5-5.0); GRAN # 4.09 (1.4-6.5); GRAN % 65.9 % (50.0-68.0); HEMATOCRIT 37.4 % (42.0-52.0); LYMPH # 1.5 (1.2-3.4); LYMPH % 24.4 % (22.0-35.0); MEAN CELL VOLUME 85.2 fl (80.0-105.0); MEAN CORPUSCULAR HEMOGLOBIN 29.8 pg (25.0-35.0); MEAN PLATELET VOLUME 9.5 fl (7.0-11.0); MONO # 0.4 (0.1-0.6); MONO % 5.8 % (1.0-6.0); RED CELL DISTRIBUTION WIDTH 12.9 % (11.5-14.5); WHITE BLOOD COUNT 6.2 10^3/ul (4.5-11.0)
[2017-05-05] MEDS: Ciprofloxacin 400mg/200ml D5W 400 MG/200 ML BAG IVPB SCH ×2 (09:02→22:59)
[2017-05-05] MEDS: Potassium Chloride 20 mEq ER Tab PO SCH (09:03)
--- NOTE | 2017-05-05 09:05 | CP.PCM.PN ---
Subjective - Date & Time of Evaluation Date of Evaluation: 05/05/17 Time of Evaluation: 09:02 - Subjective Subjective: PGY1 Note for Dr. Virgen HPI: Patient seen and examined at bedside. Doing well with no complaints at this time. Ambulating without difficulty. Mild pain around incision site. Tolerating diet. Passing gas and semisolid stool into colostomy. Denies N/V/D/F/ CP/SOB. Objective - Vital Signs/Intake and Output Vital Signs (last 24 hours): Temp Pulse Resp BP Pulse Ox 98.6 F 76 20 157/80 H 95 05/05/17 08:00 05/05/17 08:00 05/05/17 08:00 05/05/17 08:00 05/05/17 08:00 Intake and Output: 05/05/17 05/05/17 06:59 18:59 Intake Total 1540 Output Total 1340 Balance 200 - Medications Medications: Current Medications Heparin Sodium (Porcine) (Heparin) 5,000 units SC Q12 [facility] PRN Reason: Protocol Last Admin: 05/04/17 21:56 Dose: 5,000 units Metronidazole (Flagyl) 500 mg in 100 mls @ 100 mls/hr IVPB Q8 [facility] PRN Reason: Protocol Last Admin: 05/05/17 06:31 Dose: 100 mls/hr Ciprofloxacin (Cipro 400mg/200ml Dsw) 400 mg in 200 mls @ 200 mls/hr IVPB 0800, 2000 [facility] Last Admin: 05/04/17 23:04 Dose: 200 mls/hr Ondansetron HCl (Zofran Inj) 4 mg IVP Q6H PRN PRN Reason: Nausea/Vomiting Last Admin: 05/01/17 13:10 Dose: 4 mg Oxycodone/Acetaminophen (Percocet 5/325 Mg Tab) 1 tab PO Q4H PRN PRN Reason: Pain, moderate (4-7) Stop: 05/08/17 06:42 Pantoprazole Sodium (Protonix Inj) 40 mg IVP DAILY [facility] Last Admin: 05/04/17 10:34 Dose: 40 mg Potassium Chloride (K-Dur 20 Meq Er Tab) 40 meq PO BRK [facility] Last Admin: 05/04/17 10:35 Dose: 40 meq - Labs Labs: 05/05/17 08:20 05/02/17 06:40 PT 11.4 Seconds (9.9-11.8) 04/30/17 06:40 INR 1.06 (0.93-1.08) 04/30/17 06:40 APTT 28.2 Seconds (23.7-30.8) 04/30/17 06:40 - Constitutional Appears: Well, Non-toxic, No Acute Distress - Head Exam Head Exam: ATRAUMATIC, NORMAL INSPECTION, NORMOCEPHALIC - Eye Exam Eye Exam: EOMI Pupil Exam: NORMAL ACCOMODATION - ENT Exam ENT Exam: Mucous Membranes Moist - Respiratory Exam Respiratory Exam: Clear to Ausculation Bilateral, NORMAL BREATHING PATTERN - Cardiovascular Exam Cardiovascular Exam: REGULAR RHYTHM - GI/Abdominal Exam GI & Abdominal Exam: Soft, Tenderness (mild around incision site), Normal Bowel Sounds. absent: Distended Additional comments: colostomy present, stool in bag, no blood. Stoma pink with no evidence of necrosis. Skin surrounding stoma healthy appearing. Midline incision dressing c/ d/i. Jez drain present draining serosanginous fluid. - Extremities Exam Extremities Exam: absent: Joint Swelling, Tenderness - Back Exam Back Exam: absent: CVA tenderness (L), CVA tenderness (R) - Neurological Exam Neurological Exam: Alert, Awake, Oriented x3 - Psychiatric Exam Psychiatric exam: Normal Affect, Normal Mood - Skin Skin Exam: Dry, Intact, Normal Color, Warm Assessment and Plan - Assessment and Plan (Free Text) Assessment: 47M s/p hartmanns POD#5 for acute perf diverticulitis w/ abscess Plan: * Regular diet * Abx: Cipro 400 IV BID, Flagyl 500 IV Q8 * Pain control: Perc 5/325 PO Q4 PRN * Consider removing GABY * PPX: ICS 10x/hr, ambulate, heparin, protonix
[2017-05-05 10:05] LABS: ALKALINE PHOSPHATASE 63 U/L (38-126); ALT/SGPT 55 U/L (7-56); AST/SGOT 61 U/L (17-59); BILIRUBIN,TOTAL 0.5 mg/dL (0.2-1.3); BLOOD UREA NITROGEN 14 mg/dL (7-21); CALCIUM 8.6 mg/dL (8.4-10.5); CARBON DIOXIDE 24 mmol/L (21-33); CHLORIDE 103 mmol/L (98-107); GFR AFRICAN-AMERICAN > 60; GLUCOSE,RANDOM 110 mg/dL (70-110); POTASSIUM 3.8 mmol/L (3.6-5.0); SODIUM 138 mmol/L (132-148); TOTAL PROTEIN 6.5 g/dL (5.8-8.3)
[2017-05-06 01:21] VITALS: RESP 18
[2017-05-06] MEDS: metroNIDAZOLE IV 500 mg/100 ml 500 MG/100 ML BAG IVPB SCH (06:13)
[2017-05-06 07:14] LABS: BASO # 0.04 K/mm3 (0.0-2.0); BASO % 0.5 % (0.0-3.0); EOS # 0.3 (0.0-0.7); EOS % 3.1 % (1.5-5.0); GRAN # 5.05 (1.4-6.5); GRAN % 63.1 % (50.0-68.0); HEMATOCRIT 38.6 % (42.0-52.0); LYMPH # 2.1 (1.2-3.4); LYMPH % 25.9 % (22.0-35.0); MEAN CELL VOLUME 85.6 fl (80.0-105.0); MEAN CORPUSCULAR HEMOGLOBIN 29.7 pg (25.0-35.0); MEAN CORPUSCULAR HGB CONC 34.7 g/dl (31.0-37.0); MEAN PLATELET VOLUME 9.3 fl (7.0-11.0); MONO # 0.6 (0.1-0.6); MONO % 7.4 % (1.0-6.0); RED CELL DISTRIBUTION WIDTH 12.9 % (11.5-14.5)
[2017-05-06 07:38] LABS: ALKALINE PHOSPHATASE 60 U/L (38-126); ALT/SGPT 58 U/L (7-56); AST/SGOT 46 U/L (17-59); BILIRUBIN,TOTAL 0.5 mg/dL (0.2-1.3); BLOOD UREA NITROGEN 13 mg/dL (7-21); CALCIUM 8.7 mg/dL (8.4-10.5); CARBON DIOXIDE 25 mmol/L (21-33); CHLORIDE 103 mmol/L (98-107); GFR AFRICAN-AMERICAN > 60; GLUCOSE,RANDOM 121 mg/dL (70-110); POTASSIUM 4.1 mmol/L (3.6-5.0); SODIUM 138 mmol/L (132-148); TOTAL PROTEIN 6.8 g/dL (5.8-8.3)
[2017-05-06] MEDS: Ciprofloxacin 400mg/200ml D5W 400 MG/200 ML BAG IVPB SCH (07:47)
[2017-05-06 08:15] VITALS: BP 138/97; PULSE 77; TEMP 98.3; O2SAT 98
[2017-05-06] MEDS: Potassium Chloride 20 mEq ER Tab PO SCH (09:21)
--- NOTE | 2017-05-06 11:16 | CP.PCM.DIS ---
Provider - Provider Date of Admission: 04/29/17 23:15 Attending physician: Massimo Virgen MD Time Spent in preparation of Discharge (in minutes): 45 Hospital Course - Lab Results Lab Results: Micro Results 04/30/17 13:58 Abdomen Gram Stain - Final 04/30/17 13:58 Abdomen Wound Culture - Final Coagulase Neg Staphylococcus 04/30/17 01:00 Naris MRSA Culture (Admit) - Final MRSA NOT DETECTED Most Recent Lab Values WBC 8.0 10^3/ul (4.5-11.0) D 05/06/17 06:00 RBC 4.51 10^6/uL (3.5-6.1) 05/06/17 06:00 Hgb 13.4 g/dL (14.0-18.0) L 05/06/17 06:00 Hct 38.6 % (42.0-52.0) L 05/06/17 06:00 MCV 85.6 fl (80.0-105.0) 05/06/17 06:00 MCH 29.7 pg (25.0-35.0) 05/06/17 06:00 MCHC 34.7 g/dl (31.0-37.0) 05/06/17 06:00 RDW 12.9 % (11.5-14.5) 05/06/17 06:00 Plt Count 305 10^3/uL (120.0-450.0) 05/06/17 06:00 MPV 9.3 fl (7.0-11.0) 05/06/17 06:00 Gran % 63.1 % (50.0-68.0) 05/06/17 06:00 Lymph % (Auto) 25.9 % (22.0-35.0) 05/06/17 06:00 [place] % (Auto) 7.4 % (1.0-6.0) H 05/06/17 06:00 Eos % (Auto) 3.1 % (1.5-5.0) 05/06/17 06:00 Baso % (Auto) 0.5 % (0.0-3.0) 05/06/17 06:00 Gran # 5.05 (1.4-6.5) 05/06/17 06:00 Lymph # 2.1 (1.2-3.4) 05/06/17 06:00 [place] # 0.6 (0.1-0.6) 05/06/17 06:00 Eos # 0.3 (0.0-0.7) 05/06/17 06:00 Baso # 0.04 K/mm3 (0.0-2.0) 05/06/17 06:00 PT 11.4 Seconds (9.9-11.8) 04/30/17 06:40 INR 1.06 (0.93-1.08) 04/30/17 06:40 APTT 28.2 Seconds (23.7-30.8) 04/30/17 06:40 Sodium 138 mmol/L (132-148) 05/06/17 06:00 Potassium 4.1 mmol/L (3.6-5.0) 05/06/17 06:00 Chloride 103 mmol/L (98-107) 05/06/17 06:00 Carbon Dioxide 25 mmol/L (21-33) 05/06/17 06:00 Anion Gap 14 (10-20) 05/06/17 06:00 BUN 13 mg/dL (7-21) 05/06/17 06:00 Creatinine 0.9 mg/dL (0.5-1.4) 05/06/17 06:00 Est GFR ( Amer) > 60 05/06/17 06:00 Est GFR (Non-Af Amer) > 60 05/06/17 06:00 Random Glucose 121 mg/dL (70-110) H 05/06/17 06:00 Calcium 8.7 mg/dL (8.4-10.5) 05/06/17 06:00 Phosphorus 2.5 mg/dL (2.5-4.5) 05/01/17 05:20 Magnesium 2.1 mg/dL (1.7-2.2) 05/01/17 05:20 Total Bilirubin 0.5 mg/dL (0.2-1.3) 05/06/17 06:00 AST 46 U/L (17-59) 05/06/17 06:00 ALT 58 U/L (7-56) H 05/06/17 06:00 Alkaline Phosphatase 60 U/L (38-126) 05/06/17 06:00 Total Protein 6.8 g/dL (5.8-8.3) 05/06/17 06:00 Albumin 3.4 g/dL (3.0-4.8) 05/06/17 06:00 Globulin 3.4 gm/dL 05/06/17 06:00 Albumin/Globulin Ratio 1.0 (1.1-1.8) L 05/06/17 06:00 Lipase 43 U/L (23-300) 04/29/17 18:58 Urine Color Yellow (YELLOW) 04/29/17 20:30 Urine Appearance Clear (CLEAR) 04/29/17 20:30 Urine pH 6.0 (4.7-8.0) 04/29/17 20:30 Ur Specific [place] 1.020 (1.005-1.035) 04/29/17 20:30 Urine Protein 30 mg/dL (<30 mg/dL) H 04/29/17 20:30 Urine Glucose (UA) 250 mg/dL (NEGATIVE) H 04/29/17 20:30 Urine Ketones 15 mg/dL (NEGATIVE) H 04/29/17 20:30 Urine Blood Trace-lysed (NEGATIVE) H 04/29/17 20:30 Urine Nitrate Negative (NEGATIVE) 04/29/17 20:30 Urine Bilirubin Negative (NEGATIVE) 04/29/17 20:30 Urine Urobilinogen 0.2 E.U./dL (<1 E.U./dL) 04/29/17 20:30 Ur Leukocyte Esterase Negative [place]/uL (NEGATIVE) 04/29/17 20:30 Urine RBC 2 - 5 /hpf (0-2) 04/29/17 20:30 Urine WBC 1 - 3 /hpf (0-6) 04/29/17 20:30 Ur Epithelial Cells 3 - 4 /hpf (0-5) 04/29/17 20:30 Urine Bacteria Many (NEG) 04/29/17 20:30 Urine Other Mucus 04/29/17 20:30 Blood Type A POSITIVE 04/29/17 23:45 Blood Type Confirm A POSITIVE 04/30/17 00:30 Antibody Screen Negative 04/29/17 23:45 Crossmatch See Detail 04/29/17 23:45 BBK History Checked No verified bt 04/29/17 23:45 - Hospital Course Hospital Course: 47 M w no sig PMH came with abd pain. CT showed perforated diverticulitis with free air. Pt was taken to OR for Alysia's prcedure. By POD 6 pt had good stoma output. Pain controlled. Denies F/C/N/V/D/CP/SOB. + amb. Tolerated diet. Pt is cleared to go home. Ostomy care instruction was given. Labs were WNL and VSS. Pt was instructed to remove dressing when taking shower. Keep the wound dry. PT can take tylenol or Motrin for pain. Discharge Exam - Head Exam Head Exam: ATRAUMATIC, NORMAL INSPECTION, NORMOCEPHALIC - Eye Exam Eye Exam: EOMI, Normal appearance, PERRL Pupil Exam: NORMAL ACCOMODATION, PERRL - Neck Exam Neck exam: Full Rom, Normal Inspection - Respiratory Exam Respiratory Exam: NORMAL BREATHING PATTERN, UNREMARKABLE - Cardiovascular Exam Cardiovascular Exam: REGULAR RHYTHM - GI/Abdominal Exam GI & Abdominal Exam: Normal Bowel Sounds, Soft, Tenderness. absent: Distended, Firm, Guarding, Hernia Additional comments: Stoma in place: stool output. Incision C/D/I. Dressing applied. - Exam Exam: NORMAL INSPECTION - Extremities Exam Extremities exam: full ROM, normal inspection - Back Exam Back exam: NORMAL INSPECTION - Neurological Exam Neurological exam: Alert, CN II-XII Intact, Normal Gait, Oriented x3, Reflexes Normal - Psychiatric Exam Psychiatric exam: Normal Affect, Normal Mood - Skin Skin Exam: Dry, Intact, Normal Color, Warm Discharge Plan - Follow Up Plan Condition: STABLE Disposition: HOME/ ROUTINE Patient education suggested?: Yes Instructions: Colostomy Creation (DC) Additional Instructions: Follow up at Dr. Virgen's office in 1-2 weeks to remove ton. And further follow up for eventual colostomy reversal. Ok to take shower. Take dressing off when taking shower. Keep area dry after. Ostomy care. Empty the bag as needed. apply new Ostomy wafer when coming off. Apply alcohol and dry around the ostomy for better adhesion. Apply dry gauze and tape it around the incision as needed. Take tylenol or motrin for pain. No heavy lifting for 1 month. Referrals: [facility], [Non-Staff] -
== END 2017-05-06 12:31 | disposition home or self-care (01) | DRG 330 ==
LOC: ED 17:37 → EROBSV 18:30 → OBSVTOIN 23:15 → ERH 23:54 → CCU 04-30 01:13 → 5RSO 05-01 12:42
PROVIDERS: ADMIT Surgery; ATTEND Surgery
PROC: 0DTN0ZZ Resection of Sigmoid Colon, Open Approach (ICD-10-PCS; principal; 2017-04-30 07:30)
PROC: 0D1N0Z4 Bypass Sigmoid Colon to Cutaneous, Open Approach (ICD-10-PCS; 2017-04-30 07:30)
DX: K57.20 Diverticulitis of large intestine with perforation and abscess without bleeding (principal)